=== PATIENT | female | born 1940 | race Caucasian/White ===

== ENCOUNTER → 2018-12-02 | Outpatient (CLI) | payer MEDICARE ==
[2018-12-02 14:29] LABS: BASOPHILS ABSOLUTE AUTO 0.04 K/mm3 (0.00-0.23); BASOPHILS PERCENT AUTO 0 % (0-2); EOSINOPHILS ABSOLUTE AUTO 0.26 K/mm3 (0.00-0.68); EOSINOPHILS PERCENT AUTO 3 % (0-6); Hematocrit 42.6 % (33.0-51.0); Hemoglobin 14.1 g/dL (11.5-16.0); IMMATURE GRAN ABSOLUTE AUTO 0.05 K/mm3 (0.00-0.10); IMMATURE GRAN PERCENT AUTO 1 % (0-1); LYMPHOCYTES ABSOLUTE AUTO 2.15 K/mm3 (0.84-5.20); LYMPHOCYTES PERCENT AUTO 23 % (21-46); MONOCYTES ABSOLUTE AUTO 0.85 K/mm3 (0.16-1.47); MONOCYTES PERCENT AUTO 9 % (4-13); Mean Corpuscular HGB 30.3 pg (26.0-34.0); Mean Corpuscular HGB Conc 33.1 g/dL (31.5-36.5); Mean Corpuscular Volume 91 fL (80-100); Mean Platelet Volume 10.3 fL (9.1-12.4); NEUTROPHILS ABSOLUTE AUTO 5.88 K/mm3 (1.96-9.15); NEUTROPHILS PERCENT AUTO 64 % (41-73); Platelet Count 262 K/mm3 (150-400); RDW Coefficient Variation 13.6 % (11.7-14.2); Red Blood Cell Count 4.66 M/mm3 (3.80-5.20); White Blood Cell Count 9.23 K/mm3 (4.00-11.30)
[2018-12-02 14:40] LABS: Albumin, Blood 3.7 g/dL (3.4-5.0); Bilirubin, Total 0.3 mg/dL (0.1-1.0); Bun/Creatinine Ratio 24.8 (12.0-20.0); Calcium, Blood 9.2 mg/dL (8.5-10.1); Creatinine, Blood 1.01 mg/dL (0.40-1.00); Globulin, Blood 3.8 g/dL (2.2-4.0); Potassium, Blood 3.9 mmol/L (3.5-5.5); Total Protein, Blood 7.5 g/dL (6.4-8.2)
== END | disposition home or self-care (01) ==
LOC: LAB SHORT 14:21 → LAB EV 14:21
PROVIDERS: Physician Assistant
DX: E11.9 Type 2 diabetes mellitus without complications (principal); N39.0 Urinary tract infection, site not specified
CPT/HCPCS: 80053; 85025; 87077; 87086; 87186

== ENCOUNTER → 2019-01-10 | Outpatient (CLI) | payer MEDICARE ==
[2019-01-10 15:19] LABS: BASOPHILS ABSOLUTE AUTO 0.07 K/mm3 (0.00-0.23); BASOPHILS PERCENT AUTO 1 % (0-2); EOSINOPHILS ABSOLUTE AUTO 0.24 K/mm3 (0.00-0.68); EOSINOPHILS PERCENT AUTO 3 % (0-6); Hematocrit 41.5 % (33.0-51.0); Hemoglobin 13.5 g/dL (11.5-16.0); IMMATURE GRAN ABSOLUTE AUTO 0.06 K/mm3 (0.00-0.10); IMMATURE GRAN PERCENT AUTO 1 % (0-1); LYMPHOCYTES ABSOLUTE AUTO 2.07 K/mm3 (0.84-5.20); LYMPHOCYTES PERCENT AUTO 24 % (21-46); MONOCYTES ABSOLUTE AUTO 0.81 K/mm3 (0.16-1.47); MONOCYTES PERCENT AUTO 9 % (4-13); Mean Corpuscular HGB 30.3 pg (26.0-34.0); Mean Corpuscular HGB Conc 32.5 g/dL (31.5-36.5); Mean Corpuscular Volume 93 fL (80-100); Mean Platelet Volume 10.5 fL (9.1-12.4); NEUTROPHILS ABSOLUTE AUTO 5.49 K/mm3 (1.96-9.15); NEUTROPHILS PERCENT AUTO 63 % (41-73); Platelet Count 234 K/mm3 (150-400); RDW Coefficient Variation 14.1 % (11.7-14.2); RDW Standard Deviation 47.9 fL (35.1-46.3); Red Blood Cell Count 4.46 M/mm3 (3.80-5.20); White Blood Cell Count 8.74 K/mm3 (4.00-11.30)
[2019-01-10 15:41] LABS: Albumin, Blood 3.6 g/dL (3.4-5.0); Bilirubin, Total 0.3 mg/dL (0.1-1.0); Bun/Creatinine Ratio 23.8 (12.0-20.0); Calcium, Blood 8.6 mg/dL (8.5-10.1); Creatinine, Blood 1.05 mg/dL (0.40-1.00); Globulin, Blood 3.5 g/dL (2.2-4.0); Thyroid Stimulating Hormone 2.328 uIU/mL (0.360-4.800); Total Protein, Blood 7.1 g/dL (6.4-8.2)
[2019-01-10 15:47] LABS: Source, Urine Clean Catch
[2019-01-10 16:01] LABS: Bacteria Many /hpf; Red Blood Cells, Urine 0-2 /hpf (0-2); Squamous Epithelial Cells Many /hpf (Few); White Blood Cells, Urine 25-50 /hpf (0-5)
== END | disposition home or self-care (01) ==
LOC: LAB SHORT 15:14 → LAB EV 15:14
PROVIDERS: Physician Assistant Medical
DX: R06.09 Other forms of dyspnea (principal); N39.0 Urinary tract infection, site not specified; R53.83 Other fatigue; R30.9 Painful micturition, unspecified
CPT/HCPCS: 80053; 81015; 83880; 84443; 85025; 87077; 87086; 87186

== ENCOUNTER → 2019-02-10 | Outpatient (CLI) | payer MEDICARE ==
[2019-02-10 14:28] LABS: BASOPHILS ABSOLUTE AUTO 0.07 K/mm3 (0.00-0.23); BASOPHILS PERCENT AUTO 1 % (0-2); EOSINOPHILS ABSOLUTE AUTO 0.21 K/mm3 (0.00-0.68); EOSINOPHILS PERCENT AUTO 3 % (0-6); Hemoglobin 14.6 g/dL (11.5-16.0); IMMATURE GRAN ABSOLUTE AUTO 0.03 K/mm3 (0.00-0.10); IMMATURE GRAN PERCENT AUTO 0 % (0-1); LYMPHOCYTES PERCENT AUTO 24 % (21-46); MONOCYTES ABSOLUTE AUTO 0.69 K/mm3 (0.16-1.47); MONOCYTES PERCENT AUTO 9 % (4-13); Mean Corpuscular HGB 30.4 pg (26.0-34.0); Mean Corpuscular HGB Conc 33.2 g/dL (31.5-36.5); Mean Corpuscular Volume 92 fL (80-100); Mean Platelet Volume 10.5 fL (9.1-12.4); NEUTROPHILS ABSOLUTE AUTO 5.11 K/mm3 (1.96-9.15); NEUTROPHILS PERCENT AUTO 64 % (41-73); Platelet Count 269 K/mm3 (150-400); RDW Coefficient Variation 13.2 % (11.7-14.2); RDW Standard Deviation 44.4 fL (35.1-46.3); Red Blood Cell Count 4.81 M/mm3 (3.80-5.20); White Blood Cell Count 8.01 K/mm3 (4.00-11.30)
[2019-02-10 14:39] LABS: Alanine Aminotransfer (ALT/SGP 32 U/L (12-78); Albumin, Blood 3.6 g/dL (3.4-5.0); Albumin/Globulin Ratio 0.9 (0.8-1.8); Alk Phos 93 U/L (40-126); Anion Gap 12 mmol/L (6-16); Aspartate Aminotrans (AST/SGOT 27 U/L (12-37); Bilirubin, Total 0.4 mg/dL (0.1-1.0); Blood Urea Nitrogen 19 mg/dL (8-24); Bun/Creatinine Ratio 18.3 (12.0-20.0); CO2, Blood 25 mmol/L (21-32); Calcium, Blood 9.1 mg/dL (8.5-10.1); Chloride, Blood 104 mmol/L (98-108); Creatinine, Blood 1.04 mg/dL (0.40-1.00); Glomerular Filtration Rate 51 (60-); Glucose, Blood 217 mg/dL (70-99); Potassium, Blood 4.4 mmol/L (3.5-5.5); Sodium, Blood 141 mmol/L (136-145); Total Protein, Blood 7.6 g/dL (6.4-8.2)
[2019-02-10 15:01] LABS: Troponin I <0.017 ng/mL (0.000-0.040)
== END | disposition home or self-care (01) ==
LOC: LAB SHORT 14:20 → LAB EV 14:20
PROVIDERS: Physician Assistant
DX: R06.00 Dyspnea, unspecified (principal); R53.83 Other fatigue; R82.79 Other abnormal findings on microbiological examination of urine
CPT/HCPCS: 80053; 83880; 84443; 84484; 85025; 87086

== ENCOUNTER → 2019-04-18 | Outpatient (CLI) | payer MEDICARE | END | disposition home or self-care (01) | LOC: LAB EV 17:29 → LAB SHORT 17:29 | DX: N39.0 Urinary tract infection, site not specified (principal) | CPT/HCPCS: 87077; 87086; 87186 ==

== ENCOUNTER → 2020-06-21 | Outpatient (CLI) | payer MEDICARE | LOC: LAB 15:30 → LAB SHORT 15:30 | DX: L08.9 Local infection of the skin and subcutaneous tissue, unspecified (principal); D48.5 Neoplasm of uncertain behavior of skin; L57.0 Actinic keratosis; L21.8 Other seborrheic dermatitis; L81.4 Other melanin hyperpigmentation; Z71.89 Other specified counseling | CPT/HCPCS: 87070; 87205 ==

== ENCOUNTER 2021-12-10 09:46 | Emergency (ER) | payer MEDICARE ==
[~2021-12-10] VITALS: Ht 160 cm; Wt 90.7 kg
[~2021-12-10 09:46] MED LIST: FUROSEMIDE20 MG PO; HUMULIN 70100 UNIT/3 SC; LISI20 PO; TRAM50 PO
== END 2021-12-10 14:02 | disposition home or self-care (01) ==
LOC: ER 09:46
DX: M25.562 Pain in left knee (principal); G89.29 Other chronic pain; Z79.899 Other long term (current) drug therapy; Z79.4 Long term (current) use of insulin
CPT/HCPCS: 73562-LT; A9270

== ENCOUNTER → 2022-05-05 | Outpatient (CLI) | payer MEDICARE | END | disposition home or self-care (01) | LOC: LAB SHORT 13:46 | DX: N39.0 Urinary tract infection, site not specified (principal) | CPT/HCPCS: 87077; 87086; 87186 ==

== ENCOUNTER 2022-06-24 09:59 | Emergency (ER) | payer MEDICARE ==
[~2022-06-24] VITALS: Ht 160 cm; Wt 86.2 kg
[2022-06-24 10:54] LABS: Source, Urine Straight Cath
[2022-06-24] MEDS ORDERED: VITAMIN D310 MC4 PO (10:55)
[2022-06-24] MEDS ORDERED: METOPROLOL SUCC25 MG PO (10:55)
[2022-06-24] MEDS ORDERED: Prinivil10 MG PO (10:55)
[2022-06-24] MEDS ORDERED: FURO20 PO (10:55)
[2022-06-24] MEDS ORDERED: TRAM50 PO (10:56)
[2022-06-24] MEDS ORDERED: HUMULIN N100 UNIT/1 SC (10:56)
[2022-06-24 10:58] LABS: Appearance, Urine Clear (Clear); Bilirubin, Urine Neg (Neg); Blood, Urine 1+ (Neg); Color, Urine Yellow (P-Yellow); Glucose Qualitative, Urine Neg (Neg); Ketones, Urine 1+ (Neg); Leukocyte Esterase, Urine 3+ (Neg); Nitrite, Urine Neg (Neg); Protein, Urine 1+ (Neg); Urobilinogen, Urine NORM (Normal)
[2022-06-24 11:01] LABS: BASOPHILS ABSOLUTE AUTO 0.03 K/mm3 (0.00-0.23); BASOPHILS PERCENT AUTO 0 % (0-2); EOSINOPHILS ABSOLUTE AUTO 0.15 K/mm3 (0.00-0.68); EOSINOPHILS PERCENT AUTO 2 % (0-6); Hematocrit 39.4 % (33.0-51.0); Hemoglobin 13.3 g/dL (11.5-16.0); IMMATURE GRAN ABSOLUTE AUTO 0.05 K/mm3 (0.00-0.10); IMMATURE GRAN PERCENT AUTO 1 % (0-1); LYMPHOCYTES ABSOLUTE AUTO 1.55 K/mm3 (0.84-5.20); LYMPHOCYTES PERCENT AUTO 21 % (21-46); MONOCYTES ABSOLUTE AUTO 0.77 K/mm3 (0.16-1.47); MONOCYTES PERCENT AUTO 11 % (4-13); Mean Corpuscular HGB 29.3 pg (26.0-34.0); Mean Corpuscular HGB Conc 33.8 g/dL (31.5-36.5); Mean Corpuscular Volume 87 fL (80-100); Mean Platelet Volume 10.3 fL (9.1-12.4); NEUTROPHILS ABSOLUTE AUTO 4.78 K/mm3 (1.96-9.15); NEUTROPHILS PERCENT AUTO 65 % (41-73); Platelet Count 271 K/mm3 (150-400); RDW Coefficient Variation 13.2 % (11.7-14.2); RDW Standard Deviation 41.2 fL (35.1-46.3); Red Blood Cell Count 4.54 M/mm3 (3.80-5.20); White Blood Cell Count 7.33 K/mm3 (4.00-11.30)
[2022-06-24 11:12] LABS: Bacteria Mod /hpf; Red Blood Cells, Urine 0-2 /hpf (0-2); Squamous Epithelial Cells Not Seen /hpf (Few)
[2022-06-24 11:18] LABS: Albumin, Blood 3.7 g/dL (3.4-5.0); Bilirubin, Total 0.5 mg/dL (0.1-1.0); Bun/Creatinine Ratio 16.3 (12.0-20.0); Calcium, Blood 9.5 mg/dL (8.5-10.1); Creatinine, Blood 0.92 mg/dL (0.40-1.00); Globulin, Blood 3.7 g/dL (2.2-4.0); Potassium, Blood 3.8 mmol/L (3.5-5.5); Total Protein, Blood 7.4 g/dL (6.4-8.2)
[2022-06-24] MEDS ORDERED: CEFD300 PO (13:34)
== END 2022-06-24 13:57 | disposition home or self-care (01) ==
LOC: ER 09:59
PROVIDERS: Emergency Medicine
DX: N39.0 Urinary tract infection, site not specified (principal); E87.8 Other disorders of electrolyte and fluid balance, not elsewhere classified; E11.9 Type 2 diabetes mellitus without complications; I10 Essential (primary) hypertension; Z79.899 Other long term (current) drug therapy; Z79.4 Long term (current) use of insulin
CPT/HCPCS: 36415; 71045; 80053; 81001; 83880; 84484; 85025; 87077; 87086; 87186; 93005; 93010; 96365; 99284-25; A9270; J0696; P9612

== ENCOUNTER 2022-10-10 10:58 | Inpatient (IN) | payer MEDICARE ==
[~2022-10-10] VITALS: Ht 160 cm; Wt 83.9 kg
[~2022-10-10 10:58] MED LIST changes: +ASPI81CH PO; +ATOR40TA PO; +CEFD300 PO; +CEFP200 PO; +CLOP75 PO; +FURO20 PO; +HUMULIN N100 UNIT/1 SC; +HYDACE10B PO; +METOPROLOL SUCC25 MG PO; +NAPR220 PO; +Prinivil10 MG PO; +VITAMIN D310 MC4 PO
[2022-10-10 11:44] LABS: BASOPHILS ABSOLUTE AUTO 0.06 K/mm3 (0.00-0.23); BASOPHILS PERCENT AUTO 1 % (0-2); EOSINOPHILS ABSOLUTE AUTO 0.23 K/mm3 (0.00-0.68); EOSINOPHILS PERCENT AUTO 3 % (0-6); Hematocrit 39.8 % (33.0-51.0); Hemoglobin 13.3 g/dL (11.5-16.0); IMMATURE GRAN ABSOLUTE AUTO 0.02 K/mm3 (0.00-0.10); IMMATURE GRAN PERCENT AUTO 0 % (0-1); LYMPHOCYTES ABSOLUTE AUTO 2.09 K/mm3 (0.84-5.20); LYMPHOCYTES PERCENT AUTO 31 % (21-46); MONOCYTES ABSOLUTE AUTO 0.72 K/mm3 (0.16-1.47); MONOCYTES PERCENT AUTO 11 % (4-13); Mean Corpuscular HGB 29.9 pg (26.0-34.0); Mean Corpuscular HGB Conc 33.4 g/dL (31.5-36.5); Mean Corpuscular Volume 89 fL (80-100); Mean Platelet Volume 10.7 fL (9.1-12.4); NEUTROPHILS ABSOLUTE AUTO 3.57 K/mm3 (1.96-9.15); NEUTROPHILS PERCENT AUTO 53 % (41-73); Platelet Count 249 K/mm3 (150-400); RDW Coefficient Variation 13.4 % (11.7-14.2); RDW Standard Deviation 44.2 fL (35.1-46.3); Red Blood Cell Count 4.45 M/mm3 (3.80-5.20); White Blood Cell Count 6.69 K/mm3 (4.00-11.30)
[2022-10-10 12:02] LABS: Base Excess Venous 3.4 mmol/L; Bicarbonate Venous 26.5 mmol/L (24.0-30.0); PO2 Venous 50.5 mmHg (38-42); pH Blood Venous 7.39 (7.34-7.37)
[2022-10-10 12:02] LABS: Albumin, Blood 3.2 g/dL (3.4-5.0); Albumin/Globulin Ratio 0.9 (0.8-1.8); Bilirubin, Total 0.8 mg/dL (0.1-1.0); Bun/Creatinine Ratio 26.8 (12.0-20.0); Calcium, Blood 8.8 mg/dL (8.5-10.1); Creatinine, Blood 1.12 mg/dL (0.40-1.00); Globulin, Blood 3.6 g/dL (2.2-4.0); Potassium, Blood 4.5 mmol/L (3.5-5.5); Total Protein, Blood 6.8 g/dL (6.4-8.2)
[2022-10-10 12:06] LABS: Source, Urine Straight Cath
[2022-10-10 12:16] LABS: Influenza A, PCR NEGATIVE (NEGATIVE); Influenza B, PCR NEGATIVE (NEGATIVE); Resp Syncytial Virus, PCR NEGATIVE (NEGATIVE); SARS-Cov-2 (COVID-19) PCR, MMC NEGATIVE (NEGATIVE)
[2022-10-10 13:07] LABS: Appearance, Urine Clear (Clear); Bilirubin, Urine Neg (Neg); Blood, Urine Neg (Neg); Color, Urine Yellow (P-Yellow); Glucose Qualitative, Urine Neg (Neg); Ketones, Urine Neg (Neg); Leukocyte Esterase, Urine Neg (Neg); Nitrite, Urine Pos (Neg); Protein, Urine Neg (Neg); Urobilinogen, Urine NORM (Normal)
[2022-10-10 14:21] LABS: Amorphous Light (0-Heavy); Bacteria Many /hpf; Mucus Light (0-Heavy); Red Blood Cells, Urine 0-2 /hpf (0-2); Squamous Epithelial Cells Few /hpf (Few)
[2022-10-10 14:22] LABS: Uric Acid Crystals Rare /hpf
[2022-10-10 17:12] VITALS: BP 124/81
[2022-10-10] MEDS ORDERED: TRAM50 PO (18:46)
[2022-10-10] MEDS ORDERED: HUMULIN 70100 UNIT/3 SC (18:48)
--- NOTE | 2022-10-10 18:59 | NUR ---
SHIFT SUMMARY: PT IS A/O X 4, PLEASANT AND COOPERATIVE, MILLE LACS, FORGETFUL. PT ONE ASSIST FOR TRANSFERS. PT UNABLE TO PROVIDE DETAILS OF HER MEDICATIONS. CALLED [facility] AND WAS GIVEN CAREGIVER JUSTIN NAME AND NUMBER. LIL WAS AT [facility] AND PROVIDED MEDICATION LIST OVER THE PHONE. PER JUSTIN SHE ALSO TAKES HOME INSULIN AND TRAMADOL FOR PAIN WHICH IS NOT ON THE MAR. MEDICATION RECONCILIATION IS NOW COMPLETE. PT FOUND TO HAVE ABSCESS TO R GROIN ON ADMIT WITH BLOODY PURULENT DRAINAGE SMALL AMOUNT. PHOTOS TAKEN AND IN CHART. ULTRASOUND COMPLETED.
--- NOTE | 2022-10-10 19:08 | NUR ---
PT EDUCATED ON IGNITION SOURCES AND RISK FOR INJURY WHILE OXYGEN IS IN USE. PT DENIES SMOKING AND PATIENT VERBALIZE UNDERSTANDING. PT REPORTS SHE IS NOT A SMOKER AND DOES NOT HAVE ANY SOURCES OF IGNITION MATERIALS. PT IS NOT ON OXYGEN AT THIS TIME.
[2022-10-10 21:26] VITALS: BP 150/76
[2022-10-11 04:20] VITALS: BP 149/78
[2022-10-11 05:26] LABS: BASOPHILS ABSOLUTE AUTO 0.07 K/mm3 (0.00-0.23); BASOPHILS PERCENT AUTO 1 % (0-2); EOSINOPHILS ABSOLUTE AUTO 0.22 K/mm3 (0.00-0.68); EOSINOPHILS PERCENT AUTO 3 % (0-6); Hematocrit 39.8 % (33.0-51.0); IMMATURE GRAN ABSOLUTE AUTO 0.03 K/mm3 (0.00-0.10); IMMATURE GRAN PERCENT AUTO 0 % (0-1); LYMPHOCYTES ABSOLUTE AUTO 1.97 K/mm3 (0.84-5.20); LYMPHOCYTES PERCENT AUTO 28 % (21-46); MONOCYTES ABSOLUTE AUTO 0.81 K/mm3 (0.16-1.47); MONOCYTES PERCENT AUTO 11 % (4-13); Mean Corpuscular HGB 29.3 pg (26.0-34.0); Mean Corpuscular HGB Conc 32.7 g/dL (31.5-36.5); Mean Corpuscular Volume 90 fL (80-100); Mean Platelet Volume 10.8 fL (9.1-12.4); NEUTROPHILS ABSOLUTE AUTO 4.06 K/mm3 (1.96-9.15); NEUTROPHILS PERCENT AUTO 57 % (41-73); Platelet Count 262 K/mm3 (150-400); RDW Coefficient Variation 13.4 % (11.7-14.2); Red Blood Cell Count 4.44 M/mm3 (3.80-5.20); White Blood Cell Count 7.16 K/mm3 (4.00-11.30)
[2022-10-11 06:00] LABS: Albumin, Blood 3.1 g/dL (3.4-5.0); Albumin/Globulin Ratio 0.9 (0.8-1.8); Bilirubin, Total 0.8 mg/dL (0.1-1.0); Bun/Creatinine Ratio 20.9 (12.0-20.0); Calcium, Blood 8.8 mg/dL (8.5-10.1); Creatinine, Blood 1.29 mg/dL (0.40-1.00); Globulin, Blood 3.6 g/dL (2.2-4.0); Magnesium, Blood 2.1 mg/dL (1.6-2.4); Phosphorus, Blood 2.8 mg/dL (2.5-4.9); Total Protein, Blood 6.7 g/dL (6.4-8.2)
--- NOTE | 2022-10-11 06:00 | NUR ---
SHIFT SUMMARY: CHRIS IS ALERT AND ORIENTED X 3-4. VSS, NO ACUTE EVENTS OVERNIGHT. SHE DOES NOT REQUIRE SUPPLEMENTAL OXYGEN. SHE IS TOLERATING PO INTAKE WELL, AND REPORTS ADEQUATE PAIN CONTROL WITH 50 MG OF ULTRAM. SHE DENIES ANY DIFFICULTY URINATING AND IS A ONE-PERSON ASSIST TO THE BATHROOM. IV TO R AC PATENT. ABSCESS NOTED TO R FEMORAL ACCESS SITE FROM ANGIOGRAM PRIOR TO HOSPITALIZATION. UPDATED ON-CALL CLINICIAN THAT PT TAKES 40 UNITS OF INSULIN NPH DAILY IN THE MORNING AT BASELINE. NO NEW ORDERS AT THIS TIME. PT IS LYING IN BED WITH THE CALL LIGHT IN REACH. WCTM UNTIL REPORT IS GIVEN TO DAY SHIFT RN.
[2022-10-11 07:55] VITALS: BP 141/76
--- NOTE | 2022-10-11 10:31 | NUR ---
NURSE NOTE PATIENT WAS EDUCATED ON FIRE PREVENTION AND HOSPITAL POLICIES ABOUT SMOKING AND FIRE IGNITION SOURCES.
--- NOTE | 2022-10-11 16:23 | NUR ---
SHIFT SUMMARY PATIENT IS ALERT AND ORIENTED X3. PATIENT HAS HAD NO ACUTE EVENTS THIS SHIFT. VITAL SIGNS REVIEWED. PATIENT IS PLEASENT AND COOPERATIVE WITH CARE. PATIENT HAD A BEDSIDE IND OF CYST BY DR CRUZ. PADMINIOFMANFRED AND GUHAILEE USED FOR WRAPPING. PATIENT HAS ABX INFUSED ORDERED THIS SHIFT. PATIENT IS PLANNING FOR DISCHARGE TOMORROW. PATIENT HAS HAD NO COMPLAINTS OF PAIN, NAUSEA, SOB OR VOMITTING. WILL MONITOR UNTIL SHIFT CHANGE.
[2022-10-11 16:30] VITALS: BP 148/77
[2022-10-11 19:52] VITALS: BP 153/84
[2022-10-12 05:14] VITALS: BP 164/82
--- NOTE | 2022-10-12 05:22 | NUR ---
CLINICAL OPERATIONS MANAGER SUMMARY PT A/OX1-2. NO ACUTE EVENTS OVERNIGHT. PT AWAKE MOST OF THE NIGHT. VERY CONFUSED AND AT TIMES DIFFICULT TO REDIRECT. PT REPORTS SEEING CARTOON CHARACTERS FLYING IN HER ROOM. HALLUCINATIONS AND DELLUSIONS. CALLING OUT TO ANIMALS IN THE ROOM. NOT BELIEVING IN A HOSTPITAL AND WANTING TO LOOK FOR BELONGINGS DOWN THE [place]. GETTING SCHEDULED ABOX PER JUN. CHANGED RT GROIN DRESSING AT 2200; GAUZE SATURATED WITH BLOOD. NEW GAUZE AND BANDAID PLACED. SBA ASSIST WITH FWW TO BATHROOM. UNSTEADY/WEAK GAIT. WILL NOT USE CALL LIGHT. BED LOCKED/LOW AND ALARM SET. CHARGE NURSE ASSESSED PT BELONGINS AND DETERMINED NO IGNITION RISK.
[2022-10-12 08:03] VITALS: BP 127/68
--- NOTE | 2022-10-12 12:49 | NUR ---
DISCHARGE SUMMARY PATIENT MEDICATION AND EDUCATION PACKET PRINTED AND PATIENT SIGNED PACKET. PATIENT WITH NO COMPLAINTS TODAY. PATIENT LEFT FACILITY IN WHEELCHAIR AND TRANPORTED HOME BY FRIEND CHARO AT 1250 ON 10/30/22
== END 2022-10-12 12:51 | disposition home health service (06) | DRG 674 ==
LOC: ER 10:58 → MEDS 10:59 → ENPENDDIS 10-12 09:25 → MEDS 10-12 12:51
PROVIDERS: Emergency Medicine; ADMIT Family Medicine
PROC: 0Y950ZZ Drainage of Right Inguinal Region, Open Approach (ICD-10-PCS; principal; 2022-10-11)
DX: N39.0 Urinary tract infection, site not specified (principal); F05 Delirium due to known physiological condition; L02.214 Cutaneous abscess of groin; I50.32 Chronic diastolic (congestive) heart failure; Z20.822 Contact with and (suspected) exposure to COVID-19; Z66 Do not resuscitate; I11.0 Hypertensive heart disease with heart failure; E66.9 Obesity, unspecified; L72.3 Sebaceous cyst; B96.20 Unspecified Escherichia coli [E. coli] as the cause of diseases classified elsewhere; E11.9 Type 2 diabetes mellitus without complications; Z68.35 Body mass index [BMI] 35.0-35.9, adult; Z79.82 Long term (current) use of aspirin; Z79.811 Long term (current) use of aromatase inhibitors; Z79.02 Long term (current) use of antithrombotics/antiplatelets; Z79.899 Other long term (current) drug therapy
CPT/HCPCS: 0241U; 36415; 71045; 76882; 80053; 81001; 82803; 82947; 83735; 83880; 84100; 85025; 87077; 87086; 87186; 96365; 96366; 96367; 96372; 96375; 99285-25; A9270; G0378; J0696; J1644; J2001; J2543; J7050

== ENCOUNTER 2022-10-14 23:53 | Emergency (ER) | payer MEDICARE ==
[~2022-10-14] VITALS: Ht 170.2 cm; Wt 117.9 kg
[2022-10-15 02:03] LABS: BASOPHILS ABSOLUTE AUTO 0.05 K/mm3 (0.00-0.23); BASOPHILS PERCENT AUTO 1 % (0-2); EOSINOPHILS ABSOLUTE AUTO 0.14 K/mm3 (0.00-0.68); EOSINOPHILS PERCENT AUTO 1 % (0-6); Hematocrit 39.6 % (33.0-51.0); Hemoglobin 13.4 g/dL (11.5-16.0); IMMATURE GRAN ABSOLUTE AUTO 0.04 K/mm3 (0.00-0.10); IMMATURE GRAN PERCENT AUTO 0 % (0-1); LYMPHOCYTES ABSOLUTE AUTO 1.12 K/mm3 (0.84-5.20); LYMPHOCYTES PERCENT AUTO 10 % (21-46); MONOCYTES ABSOLUTE AUTO 0.73 K/mm3 (0.16-1.47); MONOCYTES PERCENT AUTO 7 % (4-13); Mean Corpuscular HGB 29.4 pg (26.0-34.0); Mean Corpuscular HGB Conc 33.8 g/dL (31.5-36.5); Mean Corpuscular Volume 87 fL (80-100); Mean Platelet Volume 10.4 fL (9.1-12.4); NEUTROPHILS ABSOLUTE AUTO 8.91 K/mm3 (1.96-9.15); NEUTROPHILS PERCENT AUTO 81 % (41-73); Platelet Count 237 K/mm3 (150-400); RDW Coefficient Variation 13.4 % (11.7-14.2); RDW Standard Deviation 42.8 fL (35.1-46.3); Red Blood Cell Count 4.56 M/mm3 (3.80-5.20); White Blood Cell Count 10.99 K/mm3 (4.00-11.30)
[2022-10-15 02:18] LABS: Bun/Creatinine Ratio 12.2 (12.0-20.0); Calcium, Blood 8.9 mg/dL (8.5-10.1); Creatinine, Blood 1.64 mg/dL (0.40-1.00); Potassium, Blood 4.3 mmol/L (3.5-5.5)
[2022-10-15 03:46] LABS: Bun/Creatinine Ratio 14.2 (12.0-20.0); Calcium, Blood 7.5 mg/dL (8.5-10.1); Creatinine, Blood 1.27 mg/dL (0.40-1.00); Potassium, Blood 4.1 mmol/L (3.5-5.5)
[2022-10-15 04:45] VITALS: BP 103/58
== END 2022-10-15 05:47 | disposition home or self-care (01) ==
LOC: ER 23:53
PROVIDERS: Student in an Organized Health Care Education/Training Program
DX: E86.0 Dehydration (principal); N39.0 Urinary tract infection, site not specified; R51.9 Headache, unspecified; R11.0 Nausea; E11.9 Type 2 diabetes mellitus without complications; I10 Essential (primary) hypertension; Z79.899 Other long term (current) drug therapy; Z79.82 Long term (current) use of aspirin
CPT/HCPCS: 70450; 80048; 85025; 96361; 96374; 99284-25; A9270; J2405; J7030

== ENCOUNTER 2022-10-17 22:26 | Emergency (ER) | payer MEDICARE ==
[~2022-10-17] VITALS: Ht 160 cm; Wt 77.1 kg
[2022-10-18 02:35] LABS: BASOPHILS ABSOLUTE AUTO 0.09 K/mm3 (0.00-0.23); BASOPHILS PERCENT AUTO 1 % (0-2); EOSINOPHILS ABSOLUTE AUTO 0.24 K/mm3 (0.00-0.68); EOSINOPHILS PERCENT AUTO 2 % (0-6); Hematocrit 39.7 % (33.0-51.0); Hemoglobin 13.4 g/dL (11.5-16.0); IMMATURE GRAN ABSOLUTE AUTO 0.04 K/mm3 (0.00-0.10); IMMATURE GRAN PERCENT AUTO 0 % (0-1); LYMPHOCYTES PERCENT AUTO 16 % (21-46); MONOCYTES ABSOLUTE AUTO 1.04 K/mm3 (0.16-1.47); MONOCYTES PERCENT AUTO 10 % (4-13); Mean Corpuscular HGB 29.3 pg (26.0-34.0); Mean Corpuscular HGB Conc 33.8 g/dL (31.5-36.5); Mean Corpuscular Volume 87 fL (80-100); Mean Platelet Volume 10.4 fL (9.1-12.4); NEUTROPHILS ABSOLUTE AUTO 7.16 K/mm3 (1.96-9.15); NEUTROPHILS PERCENT AUTO 70 % (41-73); Platelet Count 245 K/mm3 (150-400); RDW Coefficient Variation 13.4 % (11.7-14.2); RDW Standard Deviation 42.5 fL (35.1-46.3); Red Blood Cell Count 4.57 M/mm3 (3.80-5.20); White Blood Cell Count 10.17 K/mm3 (4.00-11.30)
[2022-10-18 02:52] LABS: Albumin, Blood 3.4 g/dL (3.4-5.0); Bilirubin, Total 0.7 mg/dL (0.1-1.0); Bun/Creatinine Ratio 13.8 (12.0-20.0); Calcium, Blood 9.4 mg/dL (8.5-10.1); Creatinine, Blood 1.52 mg/dL (0.40-1.00); Globulin, Blood 3.5 g/dL (2.2-4.0); Total Protein, Blood 6.9 g/dL (6.4-8.2)
[2022-10-18 03:30] VITALS: BP 115/67
[2022-10-18] MEDS ORDERED: BISA5EC PO (03:43)
== END 2022-10-18 05:00 | disposition home or self-care (01) ==
LOC: ER 22:26
PROVIDERS: Emergency Medicine
DX: K59.00 Constipation, unspecified (principal); I10 Essential (primary) hypertension; Z79.82 Long term (current) use of aspirin; Z79.02 Long term (current) use of antithrombotics/antiplatelets; Z79.899 Other long term (current) drug therapy
CPT/HCPCS: 74018; 80053; 83690; 85025; 99284-25

== ENCOUNTER → 2022-11-04 | Outpatient (CLI) | payer MEDICARE ==
[~2022-11-04] MED LIST changes: +BISA5EC PO
[2022-11-05 16:16] LABS: HEMOGLOBIN A1C 7.6 % (4.8-5.6)
== END ==
LOC: LAB 12:00 → LAB SHORT 12:00
PROVIDERS: Internal Medicine
DX: Z51.81 Encounter for therapeutic drug level monitoring (principal); Z79.4 Long term (current) use of insulin
CPT/HCPCS: 83036

== ENCOUNTER → 2022-12-01 | Outpatient (CLI) | payer MEDICARE ==
[~2022-12-01] MED LIST changes: +QUET25 PO
[2022-12-01 14:43] LABS: BASOPHILS ABSOLUTE AUTO 0.07 K/mm3 (0.00-0.23); BASOPHILS PERCENT AUTO 1 % (0-2); EOSINOPHILS ABSOLUTE AUTO 0.09 K/mm3 (0.00-0.68); EOSINOPHILS PERCENT AUTO 1 % (0-6); Hematocrit 38.9 % (33.0-51.0); Hemoglobin 13.1 g/dL (11.5-16.0); IMMATURE GRAN ABSOLUTE AUTO 0.03 K/mm3 (0.00-0.10); IMMATURE GRAN PERCENT AUTO 0 % (0-1); LYMPHOCYTES PERCENT AUTO 20 % (21-46); MONOCYTES ABSOLUTE AUTO 0.65 K/mm3 (0.16-1.47); MONOCYTES PERCENT AUTO 8 % (4-13); Mean Corpuscular HGB Conc 33.7 g/dL (31.5-36.5); Mean Corpuscular Volume 89 fL (80-100); Mean Platelet Volume 10.6 fL (9.1-12.4); NEUTROPHILS ABSOLUTE AUTO 5.64 K/mm3 (1.96-9.15); NEUTROPHILS PERCENT AUTO 70 % (41-73); Platelet Count 226 K/mm3 (150-400); RDW Coefficient Variation 14.2 % (11.7-14.2); Red Blood Cell Count 4.36 M/mm3 (3.80-5.20); White Blood Cell Count 8.08 K/mm3 (4.00-11.30)
[2022-12-01 15:03] LABS: Albumin, Blood 3.2 g/dL (3.4-5.0); Albumin/Globulin Ratio 0.9 (0.8-1.8); Bilirubin, Total 0.5 mg/dL (0.1-1.0); Bun/Creatinine Ratio 11.9 (12.0-20.0); Creatinine, Blood 1.43 mg/dL (0.40-1.00); Globulin, Blood 3.5 g/dL (2.2-4.0); Potassium, Blood 3.5 mmol/L (3.5-5.5); Thyroid Stimulating Hormone 1.484 uIU/mL (0.360-4.800); Total Protein, Blood 6.7 g/dL (6.4-8.2)
== END ==
LOC: LAB SHORT 14:39 → LAB 14:39
PROVIDERS: Physician Assistant
DX: R53.83 Other fatigue (principal); R73.09 Other abnormal glucose
CPT/HCPCS: 80053; 83036; 84443; 85025

== ENCOUNTER 2022-12-07 20:03 | Emergency (ER) | payer MEDICARE ==
[~2022-12-07] VITALS: Ht 165.1 cm; Wt 72.6 kg
[~2022-12-07 20:03] MED LIST changes: -QUET25 PO
[2022-12-07 20:52] LABS: BASOPHILS ABSOLUTE AUTO 0.04 K/mm3 (0.00-0.23); BASOPHILS PERCENT AUTO 0 % (0-2); EOSINOPHILS ABSOLUTE AUTO 0.09 K/mm3 (0.00-0.68); EOSINOPHILS PERCENT AUTO 1 % (0-6); Hematocrit 39.3 % (33.0-51.0); Hemoglobin 13.3 g/dL (11.5-16.0); IMMATURE GRAN ABSOLUTE AUTO 0.07 K/mm3 (0.00-0.10); IMMATURE GRAN PERCENT AUTO 1 % (0-1); LYMPHOCYTES ABSOLUTE AUTO 1.56 K/mm3 (0.84-5.20); LYMPHOCYTES PERCENT AUTO 12 % (21-46); MONOCYTES ABSOLUTE AUTO 0.97 K/mm3 (0.16-1.47); MONOCYTES PERCENT AUTO 8 % (4-13); Mean Corpuscular HGB 29.7 pg (26.0-34.0); Mean Corpuscular HGB Conc 33.8 g/dL (31.5-36.5); Mean Corpuscular Volume 88 fL (80-100); Mean Platelet Volume 10.8 fL (9.1-12.4); NEUTROPHILS ABSOLUTE AUTO 9.99 K/mm3 (1.96-9.15); NEUTROPHILS PERCENT AUTO 79 % (41-73); Platelet Count 296 K/mm3 (150-400); RDW Coefficient Variation 14.1 % (11.7-14.2); RDW Standard Deviation 45.4 fL (35.1-46.3); Red Blood Cell Count 4.48 M/mm3 (3.80-5.20); White Blood Cell Count 12.72 K/mm3 (4.00-11.30)
[2022-12-07 21:05] LABS: Albumin, Blood 3.8 g/dL (3.4-5.0); Albumin/Globulin Ratio 1.1 (0.8-1.8); Bilirubin, Total 0.5 mg/dL (0.1-1.0); Calcium, Blood 9.6 mg/dL (8.5-10.1); Creatinine, Blood 1.92 mg/dL (0.40-1.00); Globulin, Blood 3.6 g/dL (2.2-4.0); Potassium, Blood 4.4 mmol/L (3.5-5.5); Total Protein, Blood 7.4 g/dL (6.4-8.2)
[2022-12-07 21:06] LABS: International Normalized Ratio 1.03; Prothrombin Time Results 10.8 Sec (9.7-11.5)
[2022-12-07 22:03] LABS: Source, Urine Straight Cath
[2022-12-07 22:11] LABS: Bilirubin, Urine Neg (Neg); Blood, Urine Neg (Neg); Glucose Qualitative, Urine 3+ (Neg); Ketones, Urine Neg (Neg); Leukocyte Esterase, Urine Neg (Neg); Nitrite, Urine Neg (Neg); Protein, Urine Neg (Neg); Urobilinogen, Urine NORM (Normal)
[2022-12-07 22:13] LABS: Appearance, Urine Clear (Clear); Color, Urine Yellow (P-Yellow)
[2022-12-07 22:52] LABS: Influenza A, PCR NEGATIVE (NEGATIVE); Influenza B, PCR NEGATIVE (NEGATIVE); Resp Syncytial Virus, PCR NEGATIVE (NEGATIVE); SARS-Cov-2 (COVID-19) PCR, MMC NEGATIVE (NEGATIVE)
[2022-12-07 23:30] VITALS: BP 104/71
[2022-12-07] MEDS ORDERED: QUET25 PO (23:59)
[2022-12-09] MEDS ORDERED: TRULICITY0.75 MG/01 SC (15:22)
[2022-12-09] MEDS ORDERED: BASAGLAR K100 UNIT/3 SC (15:22)
== END 2022-12-08 00:10 | disposition home or self-care (01) ==
LOC: ER 20:03
PROVIDERS: Emergency Medicine
DX: R44.1 Visual hallucinations (principal); E11.65 Type 2 diabetes mellitus with hyperglycemia; R41.82 Altered mental status, unspecified; Z86.73 Personal history of transient ischemic attack (TIA), and cerebral infarction without residual deficits; Z79.899 Other long term (current) drug therapy; Z79.82 Long term (current) use of aspirin; I10 Essential (primary) hypertension
CPT/HCPCS: 0241U; 51701; 70450; 71045; 80053; 81003; 85025; 85610; 93005; 93010; 96360; 99285-25; J7030

== ENCOUNTER 2022-12-09 14:20 | Inpatient (IN) | payer MEDICARE ==
[~2022-12-09] VITALS: Ht 160 cm; Wt 78.9 kg
[~2022-12-09 14:20] MED LIST changes: +QUET25 PO
[2022-12-09 14:54] LABS: BASOPHILS ABSOLUTE AUTO 0.06 K/mm3 (0.00-0.23); BASOPHILS PERCENT AUTO 1 % (0-2); EOSINOPHILS ABSOLUTE AUTO 0.25 K/mm3 (0.00-0.68); EOSINOPHILS PERCENT AUTO 3 % (0-6); Hematocrit 35.8 % (33.0-51.0); Hemoglobin 12.1 g/dL (11.5-16.0); IMMATURE GRAN ABSOLUTE AUTO 0.05 K/mm3 (0.00-0.10); IMMATURE GRAN PERCENT AUTO 1 % (0-1); LYMPHOCYTES ABSOLUTE AUTO 2.03 K/mm3 (0.84-5.20); LYMPHOCYTES PERCENT AUTO 27 % (21-46); MONOCYTES ABSOLUTE AUTO 0.68 K/mm3 (0.16-1.47); MONOCYTES PERCENT AUTO 9 % (4-13); Mean Corpuscular HGB 30.2 pg (26.0-34.0); Mean Corpuscular HGB Conc 33.8 g/dL (31.5-36.5); Mean Corpuscular Volume 89 fL (80-100); Mean Platelet Volume 10.7 fL (9.1-12.4); NEUTROPHILS ABSOLUTE AUTO 4.59 K/mm3 (1.96-9.15); NEUTROPHILS PERCENT AUTO 60 % (41-73); Platelet Count 256 K/mm3 (150-400); RDW Coefficient Variation 14.6 % (11.7-14.2); RDW Standard Deviation 47.5 fL (35.1-46.3); Red Blood Cell Count 4.01 M/mm3 (3.80-5.20); White Blood Cell Count 7.66 K/mm3 (4.00-11.30)
[2022-12-09 15:13] LABS: Albumin, Blood 3.1 g/dL (3.4-5.0); Bilirubin, Total 0.5 mg/dL (0.1-1.0); Bun/Creatinine Ratio 13.5 (12.0-20.0); Calcium, Blood 8.9 mg/dL (8.5-10.1); Creatinine, Blood 1.56 mg/dL (0.40-1.00); Potassium, Blood 4.5 mmol/L (3.5-5.5); Total Protein, Blood 6.1 g/dL (6.4-8.2)
[2022-12-09] MEDS ORDERED: TRULICITY0.75 MG/01 SC (15:22)
[2022-12-09] MEDS ORDERED: BASAGLAR K100 UNIT/3 SC (15:22)
--- NOTE | 2022-12-09 18:26 | NUR ---
PT CHART REVIEWED FOR ADMISSION
--- NOTE | 2022-12-09 21:02 | NUR ---
ADMIT NOTE- PT ADMITTED THROUGH THE ED. ADMISSION BEING COMPLETED BY WIRE STEWARD. PT ARRIVED BY MARILYN, SPEECH IS CLEAR BUT SLOW TO RESPOND TO QUESTIONS. ADMISSION ASSESSMENT TO BE COMPLETED SHORTLY. IVF STARTED AT 75ML/HR. CALL LIGHT PROVIDED TO PT, NO CURRENT S&S OF DISTRESS.
[2022-12-09 21:14] VITALS: BP 125/49
[2022-12-10 04:55] VITALS: BP 142/84
--- NOTE | 2022-12-10 05:19 | NUR ---
SHIFT SUMMARY PT IS ALERT AND ORIENTED TO PERSON, PLACE, SITUATION WITH CONFUSION. PT UP TO BEDSIDE COMMODE DURING 4-6AM ROUNDS WITH 2 PERSON ASSIST WITH GAIT BELT FOR HER FIRST TRANSFER, PT HAS WEAKNESS ON LEFT SIDE. PT CALLED OUT FOR HELP IN PLACE OF USE OF CALL LIGHT, REORIENTED PATIENT TO CALL LIGHT. PT DENIES CHEST PAIN OR PRESSURE. PT OVERALL PAIN ASSESSED, PT DENIES ANY PAIN AT THIS TIME. PT ATTEMPTED TO GET OUT OF BED MULTIPLE TIMES, EXIT ALARM ENGAGED. BED IS IN THE LOWEST POSITION AND CALL LIGHT WITHIN REACH. NO S/S OF DISTRESS AT THIS TIME.
[2022-12-10 07:20] VITALS: BP 123/59
[2022-12-10 15:37] VITALS: BP 123/67
--- NOTE | 2022-12-10 15:58 | NUR ---
Spoke with Primary RN Ruth and discussed case. Pt experiencing some confusion. Pt resting in bed and is A&OX2/3. Pt unable to verbalize appropriate reason for hospital stay. 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 Pt does appear to struggle with gathering her thoughts. Pt reports living at [facility]. She reports being and has 2 children. She reports being close to only her daughter Madelin in [place]. She reports having a close friend Megan and would like her to be the healthcare proxy in the event she can not make any decisions for herself. She states knowing Megan longer than her children and trusts her for any future decisions. Pt gives this RN verbal permission to contact her daughter and provide updates but does not know her phone number. Discussed code status wishe. Pt states completing DNR and her wishes are no heroic measures. When asked if ever completed an AD or POLST, Pt appears to struggle with understanding what an AD or POST is. Called and spoke with Dr Flood. Discussed case and relayed discussion that took place with Pt. Dr Flood plans to call friend Megan and discuss further regarding code status. Palliative Care will remain available
--- NOTE | 2022-12-10 17:28 | NUR ---
DAYSHIFT SUMMARY Patient alert & oriented x2, poor historian. Patient worked with therapy today, OOB for meals. Needs help getting to standing position and supervison for safety. Telemetry in place, NSR. Vitals stable, will continue plan of care.
[2022-12-10 19:27] VITALS: BP 120/58
--- NOTE | 2022-12-10 21:09 | NUR ---
SENIOR INFORMATION SECURITY ANALYST NURSE PT REFUSING TO HAVE HEART MONITOR ON, NURSE NOTIFIED AND SAID THEY WILL SPEAK WITH THE PT.
--- NOTE | 2022-12-11 02:52 | NUR ---
TRANSFER NOTE- PT WAS TRANSFERED TO THE SCU, AFTER SHE REMOVED HER TELE AND IV ANND BECAME AGRESSIVE WITH STAFF WHEN THEY SUGGESTED THAT THEY WERE NEEDED, PER MD PT NEEDS TO CONTINUE WEARING THE TELE. SPOKE TO ELECTRICAL MAINTENANCE MAN, PT HAS BEEN INCREASINGLY IMPULSIVE AND NOW IS USING AGRESSIVE GESTURES, TONES AND VERBAGE WITH STAFF. PT TRANSFERED TO THE SCU, MAYBE DIFFERENT STAFF WILL ELICITE A DIFFERENT REACTION FROM THE PT. REPORT GIVEN TO LUCIA.
[2022-12-11 06:16] LABS: BASOPHILS ABSOLUTE AUTO 0.06 K/mm3 (0.00-0.23); BASOPHILS PERCENT AUTO 1 % (0-2); EOSINOPHILS ABSOLUTE AUTO 0.21 K/mm3 (0.00-0.68); EOSINOPHILS PERCENT AUTO 3 % (0-6); Hematocrit 35.8 % (33.0-51.0); Hemoglobin 11.9 g/dL (11.5-16.0); IMMATURE GRAN ABSOLUTE AUTO 0.04 K/mm3 (0.00-0.10); IMMATURE GRAN PERCENT AUTO 1 % (0-1); LYMPHOCYTES ABSOLUTE AUTO 1.06 K/mm3 (0.84-5.20); LYMPHOCYTES PERCENT AUTO 17 % (21-46); MONOCYTES ABSOLUTE AUTO 0.57 K/mm3 (0.16-1.47); MONOCYTES PERCENT AUTO 9 % (4-13); Mean Corpuscular HGB 29.9 pg (26.0-34.0); Mean Corpuscular HGB Conc 33.2 g/dL (31.5-36.5); Mean Corpuscular Volume 90 fL (80-100); Mean Platelet Volume 10.4 fL (9.1-12.4); NEUTROPHILS ABSOLUTE AUTO 4.18 K/mm3 (1.96-9.15); NEUTROPHILS PERCENT AUTO 68 % (41-73); Platelet Count 258 K/mm3 (150-400); RDW Coefficient Variation 14.2 % (11.7-14.2); RDW Standard Deviation 46.6 fL (35.1-46.3); Red Blood Cell Count 3.98 M/mm3 (3.80-5.20); White Blood Cell Count 6.12 K/mm3 (4.00-11.30)
[2022-12-11 06:35] LABS: Albumin/Globulin Ratio 0.9 (0.8-1.8); Bilirubin, Total 0.6 mg/dL (0.1-1.0); Bun/Creatinine Ratio 12.2 (12.0-20.0); Calcium, Blood 8.8 mg/dL (8.5-10.1); Creatinine, Blood 1.23 mg/dL (0.40-1.00); Globulin, Blood 3.2 g/dL (2.2-4.0); Total Protein, Blood 6.2 g/dL (6.4-8.2)
[2022-12-11 07:35] VITALS: BP 135/73
[2022-12-11 16:04] VITALS: BP 125/55
--- NOTE | 2022-12-11 18:10 | NUR ---
SHIFT SUMMARY PATIENT ALERT AND INTERACTIVE. PATIENT HAVING AUDITORY AND VISUAL HALLUCINATIONS. PATIENT SEEING CHILDREN, OTHER WOMEN AND MEN IN HER ROOM. DR. VANCE NOTIFIED OF HALLUCINATIONS. PATIENT AMBULATING IN ROOM WITH WALKER AND ONE PERSON ASSIST. PATIENT EASILY CONFUSED THROUGHOUT THE DAY. PATIENT ATTEMPTING TO GET OOB MULTIPLE TIMES TO GO TO HER APARTMENT. PATIENT DOES NOT REMEMBER THAT SHE IS IN THE HOSPITAL AND NEEDS FREQUENT REDIRECTION.
--- NOTE | 2022-12-12 03:35 | NUR ---
SHIFT SUMMARY NOC PT A/O TO SELF. PT HAS BEEN CONFUSED AND HAVING AUDITORY/VISUAL HALLUCINATIONS REPORTING SEEING FAMILY MEMBERS AND SALONPAS FOR HER FEET. PT PROVIDER IS AWARE OF BEHAVIOURS OVER PAST 2 DAYS. PT IS INSISTENT ON GOING BACK TO HER APARTMENT, AND DOES NOT REALIZE THAT SHE IS IN THE HOSPITAL. PT FAMILY IS TRYING TO GET PT A BED IN [facility]. PT ON TELE IN 90'S. PT IS CURRENTLY IN BED TALKING TO HERSELF AND OTHERS WHO ARE NOT PRESENT. BED ALARM IS ON, BED IN LOWEST POSITION, AND CALL LIGHT WITHIN REACH.
--- NOTE | 2022-12-12 03:41 | NUR ---
PT EDUCATED ON [facility] FIRE SAFETY EXPLOSIVE SOURCES/NON SMOKING POLICY AND VERBALIZED UNDERSTANDING.
[2022-12-12 05:16] LABS: BASOPHILS ABSOLUTE AUTO 0.05 K/mm3 (0.00-0.23); BASOPHILS PERCENT AUTO 1 % (0-2); EOSINOPHILS PERCENT AUTO 4 % (0-6); Hematocrit 35.3 % (33.0-51.0); Hemoglobin 11.9 g/dL (11.5-16.0); IMMATURE GRAN ABSOLUTE AUTO 0.04 K/mm3 (0.00-0.10); IMMATURE GRAN PERCENT AUTO 1 % (0-1); LYMPHOCYTES ABSOLUTE AUTO 1.47 K/mm3 (0.84-5.20); LYMPHOCYTES PERCENT AUTO 21 % (21-46); MONOCYTES ABSOLUTE AUTO 0.78 K/mm3 (0.16-1.47); MONOCYTES PERCENT AUTO 11 % (4-13); Mean Corpuscular HGB 30.2 pg (26.0-34.0); Mean Corpuscular HGB Conc 33.7 g/dL (31.5-36.5); Mean Corpuscular Volume 90 fL (80-100); Mean Platelet Volume 10.6 fL (9.1-12.4); NEUTROPHILS ABSOLUTE AUTO 4.25 K/mm3 (1.96-9.15); NEUTROPHILS PERCENT AUTO 62 % (41-73); Platelet Count 274 K/mm3 (150-400); RDW Coefficient Variation 14.3 % (11.7-14.2); RDW Standard Deviation 46.9 fL (35.1-46.3); Red Blood Cell Count 3.94 M/mm3 (3.80-5.20); White Blood Cell Count 6.89 K/mm3 (4.00-11.30)
[2022-12-12 05:46] LABS: Albumin, Blood 3.1 g/dL (3.4-5.0); Albumin/Globulin Ratio 0.9 (0.8-1.8); Bilirubin, Total 0.5 mg/dL (0.1-1.0); Bun/Creatinine Ratio 12.5 (12.0-20.0); Calcium, Blood 9.1 mg/dL (8.5-10.1); Creatinine, Blood 1.2 mg/dL (0.40-1.00); Globulin, Blood 3.3 g/dL (2.2-4.0); Total Protein, Blood 6.4 g/dL (6.4-8.2)
[2022-12-12 06:30] VITALS: BP 140/70
[2022-12-12 07:21] VITALS: BP 133/58
[2022-12-12 14:56] VITALS: BP 112/78
--- NOTE | 2022-12-12 16:39 | NUR ---
SHIFT SUMMARY PATIENT SLEEPING MOST OF THE DAY AND EASILY AGITATED WHEN AWAKE. PATIENT RESISTANT WITH CARE BECAUSE OF CONFUSION. PATIENT WILLING TO TAKE HER MEDICATIONS WHEN AWAKE. PATIENT UNABLE TO WAKE UP TO EAT BREAKFAST AND HAD A LATE LUNCH UP IN CHAIR, THEN INSISTANT ABOUT GOING BACK TO BED. NO HALLUCINATIONS OBSERVED TODAY BUT PATIENT VERY SLEEPY. SPOKE WITH NIECE OVER THE PHONE AND FRIEND CHARO WHEN SHE CAME TO VISIT. PATIENT DID NOT INTERACT WITH FRIEND TODAY.
[2022-12-13 04:45] VITALS: BP 135/57
--- NOTE | 2022-12-13 05:58 | NUR ---
PATIENT SLEPT ALL NIGHT, NO COMPLAINTS OF PAIN, SOB OR PRESSURE. NO AGITATION. AGAIN, MICHELLE WAS VERY TIRED WHEN WE WOKE HER EARLY THIS MORNING. BRIEFS WERE DRY WHEN CHECKED THIS MORNING, AND PATIENT DECLINED THE NEED IN PREFERENCE TO GOING BACK TO SLEEP.
[2022-12-13 07:22] VITALS: BP 104/86
--- NOTE | 2022-12-13 09:22 | NUR ---
pt laying in bed with eyes closed, wakes easily, a/o to self, states she wants to stay in bed for breakfast, repositioned her for that, had a washcloth for her face, lungs are clear a bit dim in bases, resp even and unlabored, no cough noted, hrr, no edema noted, ppp+1, cap refill <3sec, vs stable, afebrile, piv is clear and patent, btx4, abd flat soft nontender, briefs in place for incont, skin c/w/d, holden denney, call light in reach.
[2022-12-13 15:28] VITALS: BP 124/61
--- NOTE | 2022-12-13 18:12 | NUR ---
pt has been sleeping today, up to chair for lunch and dinner, no acute changes this shift. call light in reach.
[2022-12-13 19:52] VITALS: BP 106/47
[2022-12-14 07:50] VITALS: BP 136/62
--- NOTE | 2022-12-14 14:49 | NUR ---
PT FRIEND IN TO VISIT. ALSO BRINGING A MEDICAL POA. ASKING RICKIE JO, TO BE POA. LOOKING TO SEE IF SOMEONE CAN SIGN WITNESS. CALLED [facility] AND [facility]. NO ONE FROM [facility] HERE. CALLED BRICKMASON SUPERVISOR. SHE TO CHECK AND CALL BACK.
[2022-12-14 15:28] VITALS: BP 113/64
--- NOTE | 2022-12-14 17:54 | NUR ---
PT PLEASANT COOP TODAY. TALKING MORE THIS EARLY AFTERNOON. ABLE TO TELL ME YEAR, MONTH, , AGE, PRESIDENT, THAT IS IN HOSPITAL IN [place], NAME NOT SURE. FRIEND OF 50 YRS. IN TO VISIT TODAY. BROUGHT PAPERS TO HAVE MED POA. WE ARE NOT ABLE TO SIGN, BUT [facility] WAS CALLED AND MAY HAVE IDEAS. [facility]. PT 1 ASST FWW TO CHAIR TODAY. BED IN LOW POSITION, CALL LITE I, REACH, BED ALARM ON FOR JOAN
[2022-12-14 20:18] VITALS: BP 108/67
[2022-12-15 05:44] VITALS: BP 103/53
--- NOTE | 2022-12-15 06:04 | NUR ---
CHRIS SLEPT WELL OVERNIGHT GETTING UP ONLY ONCE TO VOID. SHE DID HAVE A LARGE BOWEL MOVEMENT MIXED WITH URINE IN THE BATHROOM. MICHELLE WAS GIVEN APAP FOR GENERALIZED COMFORT TO HELP HER FALL ASLEEP. SHE STATED SHE DOES OCCASIONALLY TAKE IT TO GET COMFORTABLE AT NIGHT. MENTATION DOES APPEAR TO BE IMPROVING FROM THE PRIVIOUS NIGHT.
[2022-12-15 07:23] VITALS: BP 125/45
[2022-12-15 13:18] LABS: BASOPHILS ABSOLUTE AUTO 0.07 K/mm3 (0.00-0.23); BASOPHILS PERCENT AUTO 1 % (0-2); EOSINOPHILS ABSOLUTE AUTO 0.25 K/mm3 (0.00-0.68); EOSINOPHILS PERCENT AUTO 4 % (0-6); Hematocrit 38.2 % (33.0-51.0); Hemoglobin 12.7 g/dL (11.5-16.0); IMMATURE GRAN ABSOLUTE AUTO 0.06 K/mm3 (0.00-0.10); IMMATURE GRAN PERCENT AUTO 1 % (0-1); LYMPHOCYTES ABSOLUTE AUTO 1.44 K/mm3 (0.84-5.20); LYMPHOCYTES PERCENT AUTO 25 % (21-46); MONOCYTES ABSOLUTE AUTO 0.54 K/mm3 (0.16-1.47); MONOCYTES PERCENT AUTO 9 % (4-13); Mean Corpuscular HGB 30.1 pg (26.0-34.0); Mean Corpuscular HGB Conc 33.2 g/dL (31.5-36.5); Mean Corpuscular Volume 91 fL (80-100); Mean Platelet Volume 10.2 fL (9.1-12.4); NEUTROPHILS ABSOLUTE AUTO 3.49 K/mm3 (1.96-9.15); NEUTROPHILS PERCENT AUTO 60 % (41-73); Platelet Count 287 K/mm3 (150-400); RDW Coefficient Variation 14.6 % (11.7-14.2); RDW Standard Deviation 48.5 fL (35.1-46.3); Red Blood Cell Count 4.22 M/mm3 (3.80-5.20); White Blood Cell Count 5.85 K/mm3 (4.00-11.30)
[2022-12-15 13:33] LABS: Bun/Creatinine Ratio 17.8 (12.0-20.0); Calcium, Blood 9.1 mg/dL (8.5-10.1); Creatinine, Blood 1.07 mg/dL (0.40-1.00); Potassium, Blood 4.7 mmol/L (3.5-5.5)
[2022-12-15 16:27] VITALS: BP 124/66
--- NOTE | 2022-12-15 16:27 | NUR ---
SHIFT SUMMARY Pt remains alert to self today, pleasantly confused. Able to get oob to chair/bsc with 1 person ast. Unsteady on feet, gen weakness noted. Pt in chair for meals and 1 hours after. Request to return to bed after one hour. Voiding per request to bsc. Brief remains dry. Pain and safety maintained. Call light in reach.
[2022-12-15 19:33] VITALS: BP 126/76
--- NOTE | 2022-12-16 03:39 | NUR ---
SHIFT SUMMARY. TOOK OVER CARE OF PT HALF WAY THROUGH SHIFT. REMAINDER OF SHIFT HAS BEEN UNREMARKABLE. PT IS PLEASANTLY CONFUSED, COOPERATIVE WITH CARE. 1 PERSON ASSIST TO BATHROOM. FOLLOWS DIRECTIONS WELL. HAS NOT USED CALL LIGHT THUS FAR BUT IS ABLE TO MAKE NEEDS KNOWN. CONTINENT. BED LOCKED IN LOWEST POSTIION. CALL LIGHT LEFT WITHIN REACH.
[2022-12-16 07:09] VITALS: BP 119/41
[2022-12-16 09:51] VITALS: BP 100/54
--- NOTE | 2022-12-16 10:16 | NUR ---
Pt verbally aroused, falls back to sleep. Pt did sit up and feed self breakfast. BP readings noted. Dr. Martinez at bedside. Pr alert to place and date. C/O headached. Will give Tylenol. Will recheck BP and sugar in one hour.
[2022-12-16 11:19] VITALS: BP 103/56
[2022-12-16 12:27] LABS: BASOPHILS ABSOLUTE AUTO 0.05 K/mm3 (0.00-0.23); BASOPHILS PERCENT AUTO 1 % (0-2); EOSINOPHILS ABSOLUTE AUTO 0.26 K/mm3 (0.00-0.68); EOSINOPHILS PERCENT AUTO 5 % (0-6); Hematocrit 35.2 % (33.0-51.0); Hemoglobin 11.6 g/dL (11.5-16.0); IMMATURE GRAN ABSOLUTE AUTO 0.06 K/mm3 (0.00-0.10); IMMATURE GRAN PERCENT AUTO 1 % (0-1); LYMPHOCYTES ABSOLUTE AUTO 1.32 K/mm3 (0.84-5.20); LYMPHOCYTES PERCENT AUTO 24 % (21-46); MONOCYTES ABSOLUTE AUTO 0.63 K/mm3 (0.16-1.47); MONOCYTES PERCENT AUTO 12 % (4-13); Mean Corpuscular HGB 30.5 pg (26.0-34.0); Mean Corpuscular Volume 93 fL (80-100); Mean Platelet Volume 10.4 fL (9.1-12.4); NEUTROPHILS ABSOLUTE AUTO 3.09 K/mm3 (1.96-9.15); NEUTROPHILS PERCENT AUTO 57 % (41-73); Platelet Count 238 K/mm3 (150-400); RDW Coefficient Variation 14.9 % (11.7-14.2); RDW Standard Deviation 50.1 fL (35.1-46.3); White Blood Cell Count 5.41 K/mm3 (4.00-11.30)
[2022-12-16 12:29] LABS: Bun/Creatinine Ratio 16.7 (12.0-20.0); Calcium, Blood 8.8 mg/dL (8.5-10.1); Creatinine, Blood 1.02 mg/dL (0.40-1.00); Potassium, Blood 4.6 mmol/L (3.5-5.5)
[2022-12-16 15:13] VITALS: BP 119/56
--- NOTE | 2022-12-16 15:50 | NUR ---
Pt more awake and alert since 1499. Visiting with staff from [facility]. VSS. Will continue to monitor.
--- NOTE | 2022-12-16 17:11 | NUR ---
SHIFT SUMMARY: Pt alert to self, pleasantly confused and lethargic today. Verbally aroused, feeds self meals today. Awake for visit from [facility]. VSS. Tylenol effective for headace. VSS. Up to BSC with ast. Call light in reach. Will hold [address] Martinez verbal order today.
[2022-12-16 19:21] VITALS: BP 138/77
--- NOTE | 2022-12-17 03:19 | NUR ---
SHIFT SUMMARY. SHIFT HAS BEEN UNREMARKABLE. PT HAS BEEN AOX2-3, PLEASANT, COOPERATIVE WITH CARE. SOMNOLENT THROUGHOUT SHIFT BUT SPORADICALLY AWAKES AND IS CONSISTENTLY VERY EASILY AROUSABLE. STEADY 1-PERSON TRANSFER TO BATHROOM WITH FWW. BED ALARM REMAINS IN PLACE. ONE EPISODE OF INCONTINENCE OTHERWISE PT REMAINS CONTINENT. SOME COMPLAINTS OF MILD FOOT PAIN AFTER TRANSFER THAT WERE ALLEVIATED WITH PRN TYLENOL. PT SLEEPING SINCE. BED LOCKED IN LOWEST POSITION. CALL LIGHT LEFT WITHIN REACH.
[2022-12-17 05:28] VITALS: BP 95/49
[2022-12-17 06:16] LABS: BASOPHILS ABSOLUTE AUTO 0.06 K/mm3 (0.00-0.23); BASOPHILS PERCENT AUTO 1 % (0-2); EOSINOPHILS ABSOLUTE AUTO 0.29 K/mm3 (0.00-0.68); EOSINOPHILS PERCENT AUTO 4 % (0-6); Hematocrit 34.5 % (33.0-51.0); Hemoglobin 11.2 g/dL (11.5-16.0); IMMATURE GRAN ABSOLUTE AUTO 0.08 K/mm3 (0.00-0.10); IMMATURE GRAN PERCENT AUTO 1 % (0-1); LYMPHOCYTES ABSOLUTE AUTO 2.45 K/mm3 (0.84-5.20); LYMPHOCYTES PERCENT AUTO 35 % (21-46); MONOCYTES ABSOLUTE AUTO 0.83 K/mm3 (0.16-1.47); MONOCYTES PERCENT AUTO 12 % (4-13); Mean Corpuscular HGB Conc 32.5 g/dL (31.5-36.5); Mean Corpuscular Volume 93 fL (80-100); Mean Platelet Volume 10.7 fL (9.1-12.4); NEUTROPHILS ABSOLUTE AUTO 3.26 K/mm3 (1.96-9.15); NEUTROPHILS PERCENT AUTO 47 % (41-73); Platelet Count 245 K/mm3 (150-400); RDW Coefficient Variation 14.7 % (11.7-14.2); Red Blood Cell Count 3.73 M/mm3 (3.80-5.20); White Blood Cell Count 6.97 K/mm3 (4.00-11.30)
[2022-12-17 06:39] LABS: Albumin, Blood 2.7 g/dL (3.4-5.0); Albumin/Globulin Ratio 0.9 (0.8-1.8); Bilirubin, Total 0.2 mg/dL (0.1-1.0); Bun/Creatinine Ratio 19.8 (12.0-20.0); Calcium, Blood 8.7 mg/dL (8.5-10.1); Creatinine, Blood 0.96 mg/dL (0.40-1.00); Potassium, Blood 4.2 mmol/L (3.5-5.5); Total Protein, Blood 5.7 g/dL (6.4-8.2)
[2022-12-17 07:05] VITALS: BP 136/73
[2022-12-17 15:31] VITALS: BP 116/71
--- NOTE | 2022-12-17 16:35 | NUR ---
SHIFT SUMMARY- ALERT AND ORIENTED X2-3. FOLLOWS INSTRUCTION BUT QUICKLY FORGETS DIRECTIONS. PT HAS SLEPT MOST OF THE SHIFT. SHE COMPLAINED OF PAIN IN HER LEFT FOOT WITH AMBULATION. THERE IS A SMALL HARDEND AREA BELOW THE 5TH DIGIT ON THE SOLE OF THE FOOT. SHE ALSO COMPLAINED OF PAIN TO THE TOP OF THE LEFT EAR. NO TRAMA NOTED. IT APPEARS THAT SHE SLEEPS ON THE LEFT SIDE MOST OF THE TIME. TREATED PAIN PER EMAR. PT WAS A 1 PERSON ASSIST FROM THE BED TO THE CHAIR AND BACK AND A 2 PERSON ASSIST TO THE BATHROOM. SHE HAS BEEN CONTINENT THIS SHIFT. NORMAL SINUS ON TELE. NO ACUTE CHANGES. R/A
[2022-12-17 19:32] VITALS: BP 123/68
--- NOTE | 2022-12-18 03:28 | NUR ---
SHIFT SUMMARY. SHIFT HAS BEEN UNREMARKABLE. PT AOX2-3, PLEASANT, COOPERATIVE WITH CARE. CONTINENT THIS SHIFT. STEADY 1 PERSON TRANSFER TO BATHROOM. HAS SLEPT THROUGH MOST OF SHIFT AFTER MED PASS AND SHIFT ASSESSMENT. NO COMPLAINTS OF PAIN THUS FAR. CALLS APPROPRIATELY. BED LOCKED IN LOWEST POSITION. CALL LIGHT LEFT WITHIN REACH.
[2022-12-18 04:33] VITALS: BP 149/78
[2022-12-18 04:47] LABS: BASOPHILS ABSOLUTE AUTO 0.05 K/mm3 (0.00-0.23); BASOPHILS PERCENT AUTO 1 % (0-2); EOSINOPHILS ABSOLUTE AUTO 0.26 K/mm3 (0.00-0.68); EOSINOPHILS PERCENT AUTO 4 % (0-6); Hematocrit 33.5 % (33.0-51.0); Hemoglobin 11.1 g/dL (11.5-16.0); IMMATURE GRAN ABSOLUTE AUTO 0.08 K/mm3 (0.00-0.10); IMMATURE GRAN PERCENT AUTO 1 % (0-1); LYMPHOCYTES ABSOLUTE AUTO 2.38 K/mm3 (0.84-5.20); LYMPHOCYTES PERCENT AUTO 36 % (21-46); MONOCYTES ABSOLUTE AUTO 0.74 K/mm3 (0.16-1.47); MONOCYTES PERCENT AUTO 11 % (4-13); Mean Corpuscular HGB 30.2 pg (26.0-34.0); Mean Corpuscular HGB Conc 33.1 g/dL (31.5-36.5); Mean Corpuscular Volume 91 fL (80-100); Mean Platelet Volume 10.5 fL (9.1-12.4); NEUTROPHILS ABSOLUTE AUTO 3.11 K/mm3 (1.96-9.15); NEUTROPHILS PERCENT AUTO 47 % (41-73); Platelet Count 238 K/mm3 (150-400); RDW Coefficient Variation 14.6 % (11.7-14.2); RDW Standard Deviation 49.1 fL (35.1-46.3); Red Blood Cell Count 3.68 M/mm3 (3.80-5.20); White Blood Cell Count 6.62 K/mm3 (4.00-11.30)
[2022-12-18 05:05] LABS: Albumin, Blood 2.7 g/dL (3.4-5.0); Albumin/Globulin Ratio 0.9 (0.8-1.8); Bilirubin, Total 0.2 mg/dL (0.1-1.0); Bun/Creatinine Ratio 20.3 (12.0-20.0); Calcium, Blood 8.6 mg/dL (8.5-10.1); Creatinine, Blood 0.98 mg/dL (0.40-1.00); Globulin, Blood 2.9 g/dL (2.2-4.0); Potassium, Blood 4.1 mmol/L (3.5-5.5); Total Protein, Blood 5.6 g/dL (6.4-8.2)
[2022-12-18 07:51] VITALS: BP 131/54
[2022-12-18 16:53] VITALS: BP 140/69
--- NOTE | 2022-12-18 18:26 | NUR ---
SHIFT SUMMARY PT IS ALERT AND ORIENTED X2-3. PLEASANT. 1 PERSON ASSIST TO BEDSIDE COMMODE. NO ACUTE CHANGES THIS SHIFT. PLAN TO DISCHARGE TOMORROW.
[2022-12-18 19:20] VITALS: BP 133/70
--- NOTE | 2022-12-19 02:15 | NUR ---
SHIFT SUMMERY, PT RETIGIN BED, PT HAD SOME DIFFICULTY GOING TO SLEEP TONIGHT. CALL LIGHT IN REACH AND BED ALARM ON.
[2022-12-19 03:43] VITALS: BP 116/78
[2022-12-19 05:32] LABS: BASOPHILS ABSOLUTE AUTO 0.04 K/mm3 (0.00-0.23); BASOPHILS PERCENT AUTO 1 % (0-2); EOSINOPHILS ABSOLUTE AUTO 0.15 K/mm3 (0.00-0.68); EOSINOPHILS PERCENT AUTO 2 % (0-6); Hematocrit 35.3 % (33.0-51.0); Hemoglobin 11.6 g/dL (11.5-16.0); IMMATURE GRAN ABSOLUTE AUTO 0.11 K/mm3 (0.00-0.10); IMMATURE GRAN PERCENT AUTO 1 % (0-1); LYMPHOCYTES PERCENT AUTO 19 % (21-46); MONOCYTES ABSOLUTE AUTO 0.52 K/mm3 (0.16-1.47); MONOCYTES PERCENT AUTO 7 % (4-13); Mean Corpuscular HGB 29.9 pg (26.0-34.0); Mean Corpuscular HGB Conc 32.9 g/dL (31.5-36.5); Mean Corpuscular Volume 91 fL (80-100); Mean Platelet Volume 10.6 fL (9.1-12.4); NEUTROPHILS ABSOLUTE AUTO 5.74 K/mm3 (1.96-9.15); NEUTROPHILS PERCENT AUTO 71 % (41-73); Platelet Count 241 K/mm3 (150-400); RDW Coefficient Variation 14.8 % (11.7-14.2); RDW Standard Deviation 49.5 fL (35.1-46.3); Red Blood Cell Count 3.88 M/mm3 (3.80-5.20); White Blood Cell Count 8.06 K/mm3 (4.00-11.30)
[2022-12-19 06:07] LABS: Albumin, Blood 2.9 g/dL (3.4-5.0); Bilirubin, Total 0.3 mg/dL (0.1-1.0); Bun/Creatinine Ratio 21.4 (12.0-20.0); Calcium, Blood 8.8 mg/dL (8.5-10.1); Creatinine, Blood 1.03 mg/dL (0.40-1.00); Potassium, Blood 3.9 mmol/L (3.5-5.5); Total Protein, Blood 5.9 g/dL (6.4-8.2)
[2022-12-19 07:50] VITALS: BP 126/58
[2022-12-19 09:12] LABS: SARS-Cov-2 (COVID-19) PCR, MMC NEGATIVE (NEGATIVE)
[2022-12-19] MEDS ORDERED: ATOR40TA PO (12:10)
[2022-12-19] MEDS ORDERED: ASPI81CH PO (12:10)
[2022-12-19] MEDS ORDERED: CLOP75 PO (12:11)
--- NOTE | 2022-12-19 16:54 | NUR ---
SHIFT SUMMARY: MICHELLE IS A&OX2-3. VSS, NO ACUTE EVENTS THIS SHIFT. PT HAS HAD TWO BOWEL MOVEMENTS THIS SHIFT, ONE PERSON ASSIST TO THE BEDSIDE COMMODE WITH FWW AND GAIT BELT. SHE IS TOLERATING PO INTAKE WELL, USES THE CALL LIGHT APPROPRIATELY, AND HAS BEEN CONTINENT THIS SHIFT. ATTENDS IN PLACE. REPORT HAS BEEN CALLED TO [facility]. [facility] WAS SCHEDULED TO PICK PT UP AT 1545, UNFORUTNATELY THEY WERE DELAYED AND DO NOT CURRENTLY HAVE AN ETA. [facility]. PT IS SITTING UP IN BED WITH THE CALL LIGHT IN REACH. WCTM UNTIL PT IS TRANSPORTED OR REPORT IS GIVEN TO [employer]ER[employer] CONSULTANT RN.
--- NOTE | 2022-12-19 18:33 | NUR ---
CALLED [facility] AND REQUESTED UPDATE ON ETA, EMPLOYEE ESTIMATED APPROX 45 MINUTES. CALLED AND UPDATED STAFF AT [facility].
--- NOTE | 2022-12-19 19:38 | NUR ---
transport for pt to go to [facility] came at about 1925 pt helped on to [facility] and strapped in for safety blanket applyed , pts bag of posesions laced on [facility] and folder with pts forms and info given to transport personal.
== END 2022-12-19 19:25 | DRG 64 ==
LOC: ER 14:20 → MEDS 18:10 → ENPENDDIS 12-19 11:45 → MEDS 12-19 19:25
PROVIDERS: Family Medicine; Student in an Organized Health Care Education/Training Program; ADMIT Internal Medicine
DX: I63.89 Other cerebral infarction (principal); G93.41 Metabolic encephalopathy; I50.32 Chronic diastolic (congestive) heart failure; I13.0 Hypertensive heart and chronic kidney disease with heart failure and stage 1 through stage 4 chronic kidney disease, or unspecified chronic kidney disease; E11.22 Type 2 diabetes mellitus with diabetic chronic kidney disease; N18.32 Chronic kidney disease, stage 3b; F01.50 Vascular dementia, unspecified severity, without behavioral disturbance, psychotic disturbance, mood disturbance, and anxiety; I35.0 Nonrheumatic aortic (valve) stenosis; Z20.822 Contact with and (suspected) exposure to COVID-19; W18.30XA Fall on same level, unspecified, initial encounter; S30.0XXA Contusion of lower back and pelvis, initial encounter; S16.1XXA Strain of muscle, fascia and tendon at neck level, initial encounter; I25.10 Atherosclerotic heart disease of native coronary artery without angina pectoris; R29.701 NIHSS score 1; Z79.899 Other long term (current) drug therapy; Z79.4 Long term (current) use of insulin; Z79.01 Long term (current) use of anticoagulants; Z79.82 Long term (current) use of aspirin; Z79.891 Long term (current) use of opiate analgesic
CPT/HCPCS: 36415; 70450; 72125; 80048; 80053; 82947; 85025; 93005; 93010; 93308; 93321; 93880; 97110; 97112; 97116; 97162; 97166; 97530; 97535; 99285-25; A9270; J1644; J1815; J2405; J7030; J7040; U0002

== ENCOUNTER 2023-01-28 18:16 | Inpatient (IN) | payer MEDICARE ==
[~2023-01-28] VITALS: Ht 160 cm; Wt 74.9 kg
[~2023-01-28 18:16] MED LIST changes: +BASAGLAR K100 UNIT/3 SC; +TRULICITY0.75 MG/01 SC
[2023-01-28 20:30] LABS: BASOPHILS ABSOLUTE AUTO 0.05 K/mm3 (0.00-0.23); BASOPHILS PERCENT AUTO 1 % (0-2); EOSINOPHILS ABSOLUTE AUTO 0.14 K/mm3 (0.00-0.68); EOSINOPHILS PERCENT AUTO 1 % (0-6); Hematocrit 36.3 % (33.0-51.0); IMMATURE GRAN ABSOLUTE AUTO 0.05 K/mm3 (0.00-0.10); IMMATURE GRAN PERCENT AUTO 1 % (0-1); LYMPHOCYTES ABSOLUTE AUTO 1.64 K/mm3 (0.84-5.20); LYMPHOCYTES PERCENT AUTO 16 % (21-46); MONOCYTES ABSOLUTE AUTO 0.84 K/mm3 (0.16-1.47); MONOCYTES PERCENT AUTO 8 % (4-13); Mean Corpuscular HGB 30.7 pg (26.0-34.0); Mean Corpuscular HGB Conc 33.1 g/dL (31.5-36.5); Mean Corpuscular Volume 93 fL (80-100); Mean Platelet Volume 10.1 fL (9.1-12.4); NEUTROPHILS ABSOLUTE AUTO 7.48 K/mm3 (1.96-9.15); NEUTROPHILS PERCENT AUTO 73 % (41-73); Platelet Count 253 K/mm3 (150-400); RDW Coefficient Variation 13.7 % (11.7-14.2); RDW Standard Deviation 46.5 fL (35.1-46.3); Red Blood Cell Count 3.91 M/mm3 (3.80-5.20)
[2023-01-28 20:48] LABS: Albumin, Blood 3.5 g/dL (3.4-5.0); Bilirubin, Total 0.4 mg/dL (0.1-1.0); Bun/Creatinine Ratio 17.7 (12.0-20.0); Creatinine, Blood 1.3 mg/dL (0.40-1.00); Globulin, Blood 3.4 g/dL (2.2-4.0); Potassium, Blood 4.2 mmol/L (3.5-5.5); Total Protein, Blood 6.9 g/dL (6.4-8.2)
[2023-01-29] VITALS (17 sets, daily range): BP systolic 124–164; BP diastolic 61–104
[2023-01-29 01:07] LABS: International Normalized Ratio 1.03; Prothrombin Time Results 10.8 Sec (9.7-11.5)
[2023-01-29] MEDS ORDERED: Woman's Laxative5 MG (02:13)
[2023-01-29] MEDS ORDERED: ACET325 (02:14)
[2023-01-29] MEDS ORDERED: ALUM-MAG HYDROX30 M1 (02:15)
[2023-01-29] MEDS ORDERED: LOPERAMIDE1 MG/7.10 (02:15)
[2023-01-29] MEDS ORDERED: EYE ALLERGY ITCH5 ML (02:16)
[2023-01-29 11:14] LABS: BASOPHILS ABSOLUTE AUTO 0.05 K/mm3 (0.00-0.23); BASOPHILS PERCENT AUTO 1 % (0-2); EOSINOPHILS ABSOLUTE AUTO 0.24 K/mm3 (0.00-0.68); EOSINOPHILS PERCENT AUTO 3 % (0-6); Hematocrit 33.2 % (33.0-51.0); Hemoglobin 10.7 g/dL (11.5-16.0); IMMATURE GRAN ABSOLUTE AUTO 0.04 K/mm3 (0.00-0.10); IMMATURE GRAN PERCENT AUTO 1 % (0-1); LYMPHOCYTES ABSOLUTE AUTO 1.84 K/mm3 (0.84-5.20); LYMPHOCYTES PERCENT AUTO 21 % (21-46); MONOCYTES PERCENT AUTO 9 % (4-13); Mean Corpuscular HGB 30.4 pg (26.0-34.0); Mean Corpuscular HGB Conc 32.2 g/dL (31.5-36.5); Mean Corpuscular Volume 94 fL (80-100); Mean Platelet Volume 10.4 fL (9.1-12.4); NEUTROPHILS ABSOLUTE AUTO 5.67 K/mm3 (1.96-9.15); NEUTROPHILS PERCENT AUTO 66 % (41-73); Platelet Count 243 K/mm3 (150-400); RDW Coefficient Variation 14.1 % (11.7-14.2); RDW Standard Deviation 48.1 fL (35.1-46.3); Red Blood Cell Count 3.52 M/mm3 (3.80-5.20); White Blood Cell Count 8.64 K/mm3 (4.00-11.30)
[2023-01-29 11:24] LABS: Albumin/Globulin Ratio 0.9 (0.8-1.8); Bilirubin, Total 0.5 mg/dL (0.1-1.0); Bun/Creatinine Ratio 21.4 (12.0-20.0); Calcium, Blood 8.5 mg/dL (8.5-10.1); Creatinine, Blood 1.12 mg/dL (0.40-1.00); Globulin, Blood 3.2 g/dL (2.2-4.0); Potassium, Blood 4.1 mmol/L (3.5-5.5); Total Protein, Blood 6.2 g/dL (6.4-8.2)
--- NOTE | 2023-01-29 16:22 | NUR ---
Arrived to Day Surgery in hospital bed from surgical floor. Surgical site prepped with 2% Chlorhexidine cloth wipe. , and obtained consent for surgery/anesthesia/blood products from [facility] by phone. RN called to Dejon at [place] to confirm medications.
--- NOTE | 2023-01-29 16:47 | NUR ---
01/29/23 1647 Hannah Hanks SKIN TEAR PRESENT ON PANNUS CREASE UPON ARRIVAL TO OR
--- NOTE | 2023-01-29 19:46 | NUR ---
SHIFT SUMMARY NEW ADMIT TO UNIT THIS AM FROM ER. LEFT HIP FX FROM [facility]. TAKEN TO OR WITH DR JURADO FOR LEFT HIP NAILING. RETURNED FROM PACU AT 1830. BASELINE MILD DEMENTIA, SOMEWHAT FORGETFUL AND ANXIOUS THIS SHIFT. FEARFUL OF SURGERY. CONSENT FOR SURGERY OBTAINED FROM PATIENT'S MEDICAL POA OVER THE PHONE. LEFT HIP WITH AQUACEL C/D/I. RESTING IN BED AT THIS TIME. ROOM AIR, MONITORING WITH POST OP VSS. ATTENDS AND PUREWICK IN PLACE. TTWB TO LEFT LEG. ADVANCE DIET TOLERATED. PLAN FOR PT AND OT. REPORT GIVEN TO HYBRID CAR MECHANIC RN.
[2023-01-30 03:54] VITALS: BP 123/59
[2023-01-30 05:34] LABS: BASOPHILS ABSOLUTE AUTO 0.01 K/mm3 (0.00-0.23); BASOPHILS PERCENT AUTO 0 % (0-2); EOSINOPHILS PERCENT AUTO 0 % (0-6); Hematocrit 28.7 % (33.0-51.0); Hemoglobin 9.8 g/dL (11.5-16.0); IMMATURE GRAN ABSOLUTE AUTO 0.04 K/mm3 (0.00-0.10); IMMATURE GRAN PERCENT AUTO 0 % (0-1); LYMPHOCYTES ABSOLUTE AUTO 0.68 K/mm3 (0.84-5.20); LYMPHOCYTES PERCENT AUTO 7 % (21-46); MONOCYTES ABSOLUTE AUTO 0.48 K/mm3 (0.16-1.47); MONOCYTES PERCENT AUTO 5 % (4-13); Mean Corpuscular HGB 31.6 pg (26.0-34.0); Mean Corpuscular HGB Conc 34.1 g/dL (31.5-36.5); Mean Corpuscular Volume 93 fL (80-100); Mean Platelet Volume 10.1 fL (9.1-12.4); NEUTROPHILS PERCENT AUTO 87 % (41-73); Platelet Count 215 K/mm3 (150-400); RDW Coefficient Variation 13.5 % (11.7-14.2); RDW Standard Deviation 45.1 fL (35.1-46.3); White Blood Cell Count 9.21 K/mm3 (4.00-11.30)
[2023-01-30 05:49] LABS: Albumin, Blood 2.8 g/dL (3.4-5.0); Bilirubin, Total 0.3 mg/dL (0.1-1.0); Bun/Creatinine Ratio 19.9 (12.0-20.0); Calcium, Blood 8.1 mg/dL (8.5-10.1); Creatinine, Blood 0.86 mg/dL (0.40-1.00); Globulin, Blood 2.9 g/dL (2.2-4.0); Potassium, Blood 4.5 mmol/L (3.5-5.5); Total Protein, Blood 5.7 g/dL (6.4-8.2)
--- NOTE | 2023-01-30 05:55 | NUR ---
PT ALERT AND ORIENTED X 3 THIS EVENING (EXCLUDING CURRENT LOCATION), THOUGH IS FORGETFUL. PT'S IV WAS REMOVED BY THE PATIENT EARLIER IN THE SHIFT AND A POWERGLIDE WAS PLACED BY PCU UTILIZING AN ULTRASOUND. PT DOES NOT APPEAR TO BE IN ANY PAIN SHE MOVES TOWARDS THE EDGE OF THE BED WHEN SHE IS AWAKE (PT IS UNABLE TO GET UP ON HER OWN AND DID NOT SET THE BED ALARM OFF ALL SHIFT). PT GOT INCREASINGLY IRRITABLE THE MORNING PROGRESSED, TELLING MIRTHA RN, WHEN DRAWING BLOOD WITH THIS RN, THAT SHE WOULD PUNCH HER IF SHE DIDN'T LET HER SLEEP. NO ACUTE EVENTS THIS SHIFT. VSS AND PT'S DIET HAS BEEN ADVANCED AND SHE IS TOLERATING WATER WELL WITH NO COMPLAINTS OF NAUSEA.
--- NOTE | 2023-01-30 11:10 | NUR ---
"Spiritual Care | Pt. request Pt. is awake and sitting in a recliner when she welcomes my visit. Pt. is primarily pleasant but displays moments of confusion. Facilitate a life review. Listen with interest, and empathy. Pt. displays evidence of awareness and engagement through most of our visit. Prayed with Pt. Pt. verbalized gratitude for the spiritual care visit."
[2023-01-30 14:00] VITALS: BP 123/70
--- NOTE | 2023-01-30 18:25 | NUR ---
SHIFT SUMMARY PT A&OX4/PLEASANT & COOPERATIVE WITH ALL CARE, VSS/RA, KAJAL PO, VOIDING/BSC, STAND PIVOT WITH FWW, UP TO CHAIR T/O SHIFT, TRIES HARD TO MAINTAIN TTWB/FOLLOWS DIRECTIONS WELL, POWERGLIDE NELI SL, PAIN MANAGED WITH TYLENOL. POD1 L HIP PERC PINNING, AQUACEL DRESSING CHANGED TODAY. WILL REPORT TO ONCOMING NOC RN.
[2023-01-30 20:06] VITALS: BP 123/67
[2023-01-31 04:36] VITALS: BP 131/62
--- NOTE | 2023-01-31 06:54 | NUR ---
PT ABLE TO GET UP TO STAND AND PIVOT TO THE COMMODE SEVERAL TIMES LAST NIGHT. PT A&OX2 LAST NIGHT AND SHE WAS FORGETFUL THROUGHOUT THE NIGHT (BASELINE). NO ACUTE EVENTS OVERNIGHT, PT RE-ORIENTED FREQUENTLY. VSS.
[2023-01-31 07:46] VITALS: BP 127/65
[2023-01-31 14:41] VITALS: BP 139/62
--- NOTE | 2023-01-31 17:57 | NUR ---
SHIFT SUMMARY POD2 L PERC PINNING, ALERT BUT CONFUSED, FORGETFUL BUT COOPERATIVE, NOT IMPULSIVE, PT SLEP T/O MOST OF THE SHIFT TODAY, DENIES ANY NEEDS WHEN ASKED. NO ACUTE EVENTS THIS SHIFT, [facility].
[2023-01-31 19:36] VITALS: BP 115/73
[2023-02-01 04:00] VITALS: BP 122/62
--- NOTE | 2023-02-01 06:15 | NUR ---
NO ACUTE EVENTS OVERNIGHT. PT SLEPT FOR MOST OF THE SHIFT. VSS.
[2023-02-01 07:50] VITALS: BP 141/73
[2023-02-01 12:54] VITALS: BP 125/73
[2023-02-01 14:07] LABS: SARS-Cov-2 (COVID-19) PCR, MMC NEGATIVE (NEGATIVE)
[2023-02-01 14:18] VITALS: BP 109/65
--- NOTE | 2023-02-01 19:11 | NUR ---
SHIFT SUMMARY POD3 L PERCUTANEOUS PINNING, A/O X3 AND IS FORGETFUL AT TIMES ON WHAT IS HAPPENING (SITUATION), PLEASANT AND COOPERATIVE WITH STAFF, SHE WAS MOVING SLOWER TODAY WHILE DOING TRANSFERS WITH FWW/GB AND STAFF ASSISTANCE, UP TO CHAIR T/O MOST OF THE SHIFT, BSC PRN. PT WAS READY FOR DISCHARGE TODAY BUT TRANSPORT WAS UNABLE TO BE CONTACTED. PT DISCHARGE PACKET IS READY AND JUST NEEDS TRANSPORT ARRANGED IN THE AM. NO ACUTE EVENTS THIS SHIFT, CALL LIGHT IN REACH.
[2023-02-01 19:47] VITALS: BP 123/60
--- NOTE | 2023-02-02 03:53 | NUR ---
SHIFT SUMMARY PT HAS BEEN COMPLAINING OF INCREASED PAIN IN LEFT HIP, LOW BACK AND RIGHT SHOULDER. PT TREATED PER MAR WITH SOME RELIEF. PT IS CONFUSED AND HAS DIFFICULTY FOLLOWING DIRECTIONS. PT REPORTS FEELING WEAK THIS SHIFT. PT HAS BEEN UP TO BEDSIDE COMMODE TO VOID. PT HAD DIFFICULTY AMBULATING WITH FWW AND GAITBELT. PT HAS BEEN ABLE TO SLEEP THIS SHIFT. PT DRESSING IS INTACT AND HAS SOME SHADOWING. CALL LIGHT IN REACH AND BED ALARM ON.
[2023-02-02 04:37] VITALS: BP 95/50
[2023-02-02 04:38] VITALS: BP 95/50
[2023-02-02 07:43] VITALS: BP 118/54
[2023-02-02 15:53] VITALS: BP 136/61
--- NOTE | 2023-02-02 16:18 | NUR ---
SHIFT SUMMARY POD4 L HIP PERC PINNING, AQUACEL CDI, TTWB; POWERGLIDE FLUSHES/NO DRAW, KAJAL PO, INCONTINENT VOIDS/ATTENDS ON; PT SLEEPY TODAY, WAKES EASILY, DENIES CARE OFF-ON/DECLINED AM MEDS. PLAN FOR SNF TRANSFER THURSDAY. WILL REPORT TO ONCOMING TASHA RN.
[2023-02-02 18:59] VITALS: BP 123/78
--- NOTE | 2023-02-02 21:36 | NUR ---
PT C/O INCREASED PAIN TO L HIP, NO INCREASED REDNESS/SWELLING/WARMTH NOTED. ICE PACK PLACED AND PT REPOSITIONED.
[2023-02-03 03:43] VITALS: BP 126/70
--- NOTE | 2023-02-03 04:06 | NUR ---
SHIFT SUMMARY PT POD 5 PERC PINNING L HIP. AQUACELL DRESSING TO L HIP WITH MOD AMT SHADOWING, TO BE CHANGED TODAY. PT C/O PAIN, MEDICATED TWICE WITH TRAMADOL PER EMAR AND ONCE WITH TYLENOL, ICE APPLIED TO L HIP. PT REPORTED GOOD PAIN RELIEF AND DID APPEAR TO REST COMFORTABLY T/O SHIFT. USING CALL LIGHT APPROPRIATLY. USED BEDPAN FOR VOID SHE STATED SHE WAS "IN TO MUCH PAIN" TO AMBULATE TTWB LLE. VOIDING W/O DIFFICULTY. PLAN FOR DC TO SNF TODAY.
[2023-02-03 07:12] VITALS: BP 126/64
[2023-02-03 14:03] VITALS: BP 135/74
--- NOTE | 2023-02-03 14:26 | NUR ---
DISCHARGE-TRANSFER REPORT CALLED TO [facility]. TELEPHONE CALL TO FRIEND CHARO R/T TRANSFER TIME PER PATIENT REQUEST. A&OX3/PLEASANT AND COOPERATIVE WITH CARE, STAND PIVOT 2 PP TRANSFER TO BSC/CHAIR/BED, [id number], ATTENDS ON, PAIN MANAGED WITH ULTRAM AND TYLENOL, KAJAL PO ADA DIET, EXT DWELL DC'D. ONEIDAEL CHANGED TODAY.
== END 2023-02-03 16:08 | DRG 481 ==
LOC: ER 18:16 → SURS 01-29 00:55 → ERHOLD 01-29 00:55 → SURS 01-29 08:34
PROVIDERS: Family Medicine; Internal Medicine; Orthopaedic Surgery; Student in an Organized Health Care Education/Training Program; ADMIT Internal Medicine
PROC: 0QH734Z Insertion of Internal Fixation Device into Left Upper Femur, Percutaneous Approach (ICD-10-PCS; principal; 2023-01-29 15:30)
DX: S72.012A Unspecified intracapsular fracture of left femur, initial encounter for closed fracture (principal); F05 Delirium due to known physiological condition; F03.C0 Unspecified dementia, severe, without behavioral disturbance, psychotic disturbance, mood disturbance, and anxiety; N18.30 Chronic kidney disease, stage 3 unspecified; I12.9 Hypertensive chronic kidney disease with stage 1 through stage 4 chronic kidney disease, or unspecified chronic kidney disease; W18.30XA Fall on same level, unspecified, initial encounter; E78.5 Hyperlipidemia, unspecified; E11.22 Type 2 diabetes mellitus with diabetic chronic kidney disease; Z86.73 Personal history of transient ischemic attack (TIA), and cerebral infarction without residual deficits; Z11.52 Encounter for screening for COVID-19; Z91.010 Allergy to peanuts; Z79.899 Other long term (current) drug therapy; Z79.4 Long term (current) use of insulin; Z79.01 Long term (current) use of anticoagulants; Z79.82 Long term (current) use of aspirin; Z79.02 Long term (current) use of antithrombotics/antiplatelets
CPT/HCPCS: 73502; 73700; 80053; 82947; 85025; 85610; 93005; 93010; 94760; 96374-59; 96375-59; 97162; 97166; 97530; 97535; 99285-25; A9270; C1713; C1751; C1769; J0690; J1100; J1170; J1815; J2371; J2405; J2704; J2765; J3010; J7030; J7120; U0002

== ENCOUNTER → 2023-05-06 | Outpatient (CLI) | payer MEDICARE ==
[~2023-05-06] MED LIST changes: +ACET325; +ALUM-MAG HYDROX30 M1; +EYE ALLERGY ITCH5 ML; +LOPERAMIDE1 MG/7.10; +Woman's Laxative5 MG
[2023-05-07 12:13] LABS: Bilirubin, Urine Neg (Neg); Blood, Urine 1+ (Neg); Glucose Qualitative, Urine Neg (Neg); Ketones, Urine Neg (Neg); Leukocyte Esterase, Urine 3+ (Neg); Nitrite, Urine Neg (Neg); Protein, Urine 1+ (Neg); Specific Gravity, Urine 1.015 (1.003-1.022); Urobilinogen, Urine NORM (Normal)
[2023-05-07 13:12] LABS: Appearance, Urine Hazy (Clear); Bacteria Many /hpf; Color, Urine Yellow (P-Yellow); Mucus Light (0-Heavy); Squamous Epithelial Cells Mod /hpf (Few)
[2023-05-15 09:42] LABS: Source, Urine Clean Catch
== END ==
LOC: LAB 18:00 → LAB SHORT 18:00
PROVIDERS: Internal Medicine
DX: N39.0 Urinary tract infection, site not specified (principal)
CPT/HCPCS: 81001; 87077; 87086; 87186

== ENCOUNTER → 2023-06-08 | Outpatient (CLI) | payer MEDICARE ==
[2023-06-09 11:03] LABS: Source, Urine Clean Catch
[2023-06-09 11:55] LABS: Appearance, Urine Hazy (Clear); Bilirubin, Urine Neg (Neg); Blood, Urine 1+ (Neg); Color, Urine Yellow (P-Yellow); Glucose Qualitative, Urine Neg (Neg); Ketones, Urine Neg (Neg); Leukocyte Esterase, Urine 3+ (Neg); Nitrite, Urine Pos (Neg); Protein, Urine 1+ (Neg); Specific Gravity, Urine 1.015 (1.003-1.022); Urobilinogen, Urine NORM (Normal)
[2023-06-09 12:08] LABS: Amorphous Mod (0-Heavy); Bacteria Many /hpf; Squamous Epithelial Cells Few /hpf (Few)
[2023-06-09 12:09] LABS: Mucus Light (0-Heavy)
== END | disposition home or self-care (01) ==
LOC: LAB SHORT 17:50
PROVIDERS: Internal Medicine
DX: N39.0 Urinary tract infection, site not specified (principal)
CPT/HCPCS: 81001; 87077; 87086; 87186

== ENCOUNTER → 2023-07-28 | Outpatient (CLI) | payer MEDICARE ==
[2023-07-28 15:14] LABS: Source, Urine Voided
[2023-07-28 16:17] LABS: Appearance, Urine Hazy (Clear); Bilirubin, Urine Neg (Neg); Blood, Urine Neg (Neg); Glucose Qualitative, Urine Neg (Neg); Ketones, Urine Neg (Neg); Leukocyte Esterase, Urine 3+ (Neg); Nitrite, Urine Pos (Neg); Protein, Urine Neg (Neg); Urobilinogen, Urine NORM (Normal)
[2023-07-28 16:40] LABS: Color, Urine Pale Yellow (P-Yellow)
[2023-07-28 16:41] LABS: Bacteria Many /hpf; Red Blood Cells, Urine 0-2 /hpf (0-2); Squamous Epithelial Cells Few /hpf (Few); White Blood Cells, Urine 25-50 /hpf (0-5)
== END | disposition home or self-care (01) ==
LOC: LAB 15:12 → LAB SHORT 15:12
PROVIDERS: Internal Medicine
DX: N39.0 Urinary tract infection, site not specified (principal)
CPT/HCPCS: 81001; 87077; 87086; 87186

== ENCOUNTER → 2023-09-22 | Outpatient (CLI) | payer MEDICARE ==
[2023-09-22 17:33] LABS: Source, Urine Voided
[2023-09-22 18:57] LABS: Appearance, Urine Clear (Clear); Bilirubin, Urine Neg (Neg); Blood, Urine Neg (Neg); Glucose Qualitative, Urine Neg (Neg); Ketones, Urine Neg (Neg); Leukocyte Esterase, Urine 1+ (Neg); Nitrite, Urine Pos (Neg); Protein, Urine Neg (Neg); Urobilinogen, Urine NORM (Normal)
[2023-09-22 19:08] LABS: Bacteria Many /hpf; Color, Urine Pale Yellow (P-Yellow); Red Blood Cells, Urine 0-2 /hpf (0-2); Squamous Epithelial Cells Few /hpf (Few)
== END ==
LOC: LAB 17:29 → LAB SHORT 17:29
PROVIDERS: Internal Medicine
DX: N39.0 Urinary tract infection, site not specified (principal); B96.20 Unspecified Escherichia coli [E. coli] as the cause of diseases classified elsewhere; Z16.11 Resistance to penicillins; Z16.23 Resistance to quinolones and fluoroquinolones
CPT/HCPCS: 81001; 87077; 87086; 87186

== ENCOUNTER → 2023-09-25 | Outpatient (CLI) | payer MEDICARE ==
[2023-09-25 15:30] LABS: Bun/Creatinine Ratio 24.5 (12.0-20.0); Creatinine, Blood 0.69 mg/dL (0.40-1.00); Potassium, Blood 4.2 mmol/L (3.5-5.5)
== END ==
LOC: LAB SHORT 14:40 → LAB 14:40
PROVIDERS: Internal Medicine
DX: E11.65 Type 2 diabetes mellitus with hyperglycemia (principal); Z79.4 Long term (current) use of insulin; Z79.85 Long-term (current) use of injectable non-insulin antidiabetic drugs
CPT/HCPCS: 80048; 83036

== ENCOUNTER → 2023-10-13 | Outpatient (CLI) | payer MEDICARE ==
[2023-10-14 10:51] LABS: Source, Urine Voided
[2023-10-14 13:13] LABS: Appearance, Urine Hazy (Clear); Bilirubin, Urine Neg (Neg); Blood, Urine Neg (Neg); Glucose Qualitative, Urine Neg (Neg); Ketones, Urine Neg (Neg); Leukocyte Esterase, Urine 3+ (Neg); Nitrite, Urine Pos (Neg); Protein, Urine Neg (Neg); Urobilinogen, Urine NORM (Normal)
[2023-10-14 13:26] LABS: Color, Urine Pale Yellow (P-Yellow)
[2023-10-14 13:27] LABS: Mucus Light (0-Heavy)
[2023-10-14 13:30] LABS: Bacteria Many /hpf; Red Blood Cells, Urine 0-2 /hpf (0-2); Squamous Epithelial Cells Mod /hpf (Few)
== END ==
LOC: LAB 10:46 → LAB SHORT 10:46
PROVIDERS: Internal Medicine
DX: N39.0 Urinary tract infection, site not specified (principal)
CPT/HCPCS: 81001; 87077; 87086; 87186

== ENCOUNTER → 2023-12-11 | Outpatient (CLI) | payer MEDICARE ==
[2023-12-11 13:29] LABS: Source, Urine Voided
[2023-12-11 14:40] LABS: Appearance, Urine Hazy (Clear); Bilirubin, Urine Neg (Neg); Blood, Urine 1+ (Neg); Color, Urine Yellow (P-Yellow); Glucose Qualitative, Urine 1+ (Neg); Ketones, Urine Neg (Neg); Leukocyte Esterase, Urine 3+ (Neg); Nitrite, Urine Neg (Neg); Protein, Urine 1+ (Neg); Specific Gravity, Urine 1.015 (1.003-1.022); Urobilinogen, Urine NORM (Normal)
[2023-12-11 14:47] LABS: BASOPHILS ABSOLUTE AUTO 0.05 K/mm3 (0.00-0.23); BASOPHILS PERCENT AUTO 1 % (0-2); EOSINOPHILS ABSOLUTE AUTO 0.15 K/mm3 (0.00-0.68); EOSINOPHILS PERCENT AUTO 1 % (0-6); Hematocrit 38.6 % (33.0-51.0); Hemoglobin 12.5 g/dL (11.5-16.0); IMMATURE GRAN ABSOLUTE AUTO 0.03 K/mm3 (0.00-0.10); IMMATURE GRAN PERCENT AUTO 0 % (0-1); LYMPHOCYTES ABSOLUTE AUTO 1.64 K/mm3 (0.84-5.20); LYMPHOCYTES PERCENT AUTO 15 % (21-46); MONOCYTES ABSOLUTE AUTO 0.75 K/mm3 (0.16-1.47); MONOCYTES PERCENT AUTO 7 % (4-13); Mean Corpuscular HGB 29.8 pg (26.0-34.0); Mean Corpuscular HGB Conc 32.4 g/dL (31.5-36.5); Mean Corpuscular Volume 92 fL (80-100); Mean Platelet Volume 10.6 fL (9.1-12.4); NEUTROPHILS ABSOLUTE AUTO 8.09 K/mm3 (1.96-9.15); NEUTROPHILS PERCENT AUTO 76 % (41-73); Platelet Count 256 K/mm3 (150-400); RDW Standard Deviation 43.9 fL (35.1-46.3); Red Blood Cell Count 4.19 M/mm3 (3.80-5.20); White Blood Cell Count 10.71 K/mm3 (4.00-11.30)
[2023-12-11 14:55] LABS: Bacteria Many /hpf; Red Blood Cells, Urine 0-2 /hpf (0-2); Squamous Epithelial Cells Few /hpf (Few); White Blood Cells, Urine 50-100 /hpf (0-5)
[2023-12-11 17:05] LABS: Albumin, Blood 3.1 g/dL (3.4-5.0); Albumin/Globulin Ratio 0.9 (0.8-1.8); Bilirubin, Total 0.4 mg/dL (0.1-1.0); Bun/Creatinine Ratio 17.9 (12.0-20.0); Calcium, Blood 9.2 mg/dL (8.5-10.1); Creatinine, Blood 0.84 mg/dL (0.40-1.00); Globulin, Blood 3.6 g/dL (2.2-4.0); Potassium, Blood 4.1 mmol/L (3.5-5.5); Total Protein, Blood 6.7 g/dL (6.4-8.2)
== END ==
LOC: LAB SHORT 13:25 → LAB 13:25
PROVIDERS: Internal Medicine
DX: N18.30 Chronic kidney disease, stage 3 unspecified (principal); R30.0 Dysuria
CPT/HCPCS: 80053; 81001; 85025; 87077; 87086; 87186

== ENCOUNTER → 2024-01-19 | Outpatient (CLI) | payer MEDICARE ==
[2024-01-19 11:25] LABS: Source, Urine Clean Catch
[2024-01-19 14:08] LABS: Appearance, Urine Hazy (Clear); Bilirubin, Urine Neg (Neg); Blood, Urine 2+ (Neg); Color, Urine Yellow (P-Yellow); Glucose Qualitative, Urine Neg (Neg); Ketones, Urine Neg (Neg); Leukocyte Esterase, Urine 3+ (Neg); Nitrite, Urine Neg (Neg); Protein, Urine 2+ (Neg); Specific Gravity, Urine 1.015 (1.003-1.022); Urobilinogen, Urine NORM (Normal)
[2024-01-19 14:28] LABS: Bacteria Many /hpf; Squamous Epithelial Cells Mod /hpf (Few); White Blood Cells, Urine 50-100 /hpf (0-5)
== END | disposition home or self-care (01) ==
LOC: LAB 11:22 → LAB SHORT 11:22
PROVIDERS: Internal Medicine
DX: N39.0 Urinary tract infection, site not specified (principal)
CPT/HCPCS: 81001; 87077; 87086; 87186